=== PATIENT | male | born 1950 | race Caucasian/White ===

== ENCOUNTER 2016-11-30 08:13 | Emergency (ER) | payer MEDICARE ==
[~2016-11-30] VITALS: Ht 185.4 cm; Wt 107.3 kg
[~2016-11-30 08:13] MED LIST: ALBU8.5H2 INHALATION; AMLO10TA3 PO; ASPI-973 PO; ATOR20TA PO; CA C1TAB86 PO; CHOL200025 PO; GLUC-91 PO; KTC2C15 TOP; LEVO750T9 PO; LISI-567 PO; LORA10CA PO; MOME17SP NS; MULT-666 PO; OMEG1CAP25 PO; PANT500T PO; PRE20 PO; TRIA1TAB5 PO
[2016-11-30 08:15] VITALS: BP 157/84; PULSE 64; RESP 16; O2SAT 98
--- NOTE | 2016-11-30 08:22 | ED.REPORT ---
HPI-Chest Pain 40 and Over Date of Service Nov 30, 2016 ED Provider: Roverto Nielsen Patient is a 66 year old male with a hx of paroxysmal afib, HTN, hyperlipidemia , COPD, and DVT on Eliquis who presents to the ED complaining of chest pain onset 0700 this morning after a sneezing fit. His pain radiates to his shoulders and causes pain with inspiration. He denies SOB, cough, cold symptoms , or any other symptoms. He does not have a hx of PE. Patient took his Eloquis, Metoprolol, amlodipine, and flecainide this morning. Nursing Notes Stated Complaint: CHEST PAIN Chief Complaint: Chest Pain Nursing Notes Reviewed: Yes Allergies: Coded Allergies: Penicillins (Verified Allergy, Severe, PARALYSIS, 03/16/16) 30 YEARS AGO Scheduled Amlodipine (Amlodipine) 10 Mg Tablet 10 MG PO DAILY Apixaban (Eliquis) 5 Mg Tablet 5 MG PO BID Atorvastatin (Lipitor) 20 Mg Tablet 20 MG PO DAILY Cholecalciferol (Vitamin D3) (Vitamin D3) 2,000 Unit Tablet 2,000 UNIT PO DAILY Flecainide Acetate (Flecainide Acetate) 100 Mg Tablet 100 MG PO BID Gluc/Marek-MSM#1/Vit C/Jomar/Bor (Tngvtkl-Qllfl-KJO Complex Cplt) 1 Each Tablet 1 EACH PO BID Lisinopril (Lisinopril) 20 Mg Tablet 20 MG PO BID Loratadine (Claritin) 10 Mg Capsule 10 MG PO DAILY Metoprolol Succinate ER (Metoprolol Succinate ER) 50 Mg Tab.er.24h 50 MG PO BID Mometasone Furoate (Nasonex) 17 Gm [place].pump 2 SPRAY NS DAILY Multivitamin (Once Daily) 1 Each Tablet 1 EACH PO DAILY Triamterene/HCTZ 75-50 mg (Triamterene/HCTZ 75-50 mg) 1 Each Tablet 0.5 TABLET PO HS Scheduled PRN Albuterol HFA (Proair HFA) 8.5 Gm Hfa.aer.ad 2 PUFFS INHALATION Q4H PRN PRN For Shortness of Breath Hydrocodone-Acetaminophen 5-325 mg (Hydrocodone-Acetaminophen 5-325 mg) 1 Each Tablet 1 TABLET PO Q4H PRN PRN For Pain General Time Seen by MD: 08:22 Chief Complaint Chest pain Hx Obtained From: Patient, Spouse Arrived By: Walk-in Sudden in Onset?: Yes Onset Occurred: 1 - 4 hours ago Symptom Duration: Since onset Risk Factors )( CAD Risk Stratification Hyperlipidemia Hypertension Risk factors reviewed )( TAD Risk Stratification HypertensionNo Marfan's syndrome, No Risk factors reviewed )( PE Risk Stratification Previous DVTNo , No , No Previous PE Risk factors reviewed Past Medical History Past Medical History Polycythemia vera, Hypertension, Atrial fibrillation COPD Reports: Hyperlipidemia, Hypertension Reports: Urolithiasis Past Surgical History Reports: Appendectomy Smoking History Former Smoker Social History Alcohol Use: "Social" Drug Use: Denies drug use Ambulatory Status Independent Review of Systems Review of Systems Note: +pain with inspiration Constitutional: Denies: Chills, Fever Respiratory: Denies: Non-productive cough, Shortness of breath Cardiovascular: Reports: Chest pain GI: Denies: Diarrhea, Nausea Musculoskeletal: Reports: Joint pain Complete sys rev & neg: except as marked. Physical Exam Initial Vital Signs Vital Signs (First) Date Time Temp Pulse Resp B/P Pulse Ox O2 Delivery O2 Flow Rate FiO2 11/30/16 08:15 36.2 64 16 157/84 98 Room Air 11/30/16 08:47 2 Initial VS: Reviewed, Vital signs normal Head / Eyes: Atraumatic, Normocephalic Neck: Full range of motion Skin: Warm, Dry Neurologic: Alert, Oriented, Nonfocal Psychiatric: Mood/affect normal, Behavior normal, Normal thought content General/Constitutional: Awake, Alert, No acute distress Respiratory / Chest: Atraumatic, Breath sounds NL, Breath sounds = bilat, No respiratory distress R chest wall tender to palpation Cardiovascular: Heart rate NL, Regular rhythm, Heart sounds NL Abdomen: Atraumatic, Soft, Non-tender Neck: Supple, Full range of motion, No swelling, Non-tender, No masses, No JVD Interpretation & Diagnostics Lab Results Interpretation Result Diagram: 11/30/16 0832 11/30/16 0832 Test 11/30/16 08:32 11/30/16 10:00 White Blood Count 8.7th/mm3 (3.8-10.1) Red Blood Count 5.74mil/mm3 (4.40-5.80) Hemoglobin 16.5g/dL (13.8-17.2) Hematocrit 49.3% (41.0-50.0) Mean Corpuscular Volume 85.9fL (81-100) Mean Corpuscular Hemoglobin 28.7pg (27.0-35.0) Mean Corpuscular Hemoglobin Concent 33.5% (32.0-37.0) Red Cell Distribution Width 13.5% (12.3-15.4) Platelet Count 110bil/L (150-400) Neutrophils (%) (Auto) 70.4% (40-74) Lymphocytes (%) (Auto) 17.3% (14-46) Monocytes (%) (Auto) 10.0% (4-12) Eosinophils (%) (Auto) 1.7% (0-5) Basophils (%) (Auto) 0.3% (0-3) D-Dimer < 0.50mg/L FEU (<0.50) Sodium Level 141mEq/L (134-144) Potassium Level 4.2mEq/L (3.5-5.2) Chloride Level 101mEq/L (97-108) Carbon Dioxide Level 23mmol/L (18-29) Blood Urea Nitrogen 24mg/dL (8-27) Creatinine 0.96mg/dL (0.76-1.27) Estimat Glomerular Filtration Rate 83mL/min (>59) Glucose Level 108mg/dL (60-99) Calcium Level 9.9mg/dL (8.5-10.1) Magnesium Level 1.9mg/dL (1.6-2.6) Total Bilirubin 1.3mg/dL (0.0-1.2) Aspartate Amino Transf (AST/SGOT) 27U/L (0-50) Alanine Aminotransferase (ALT/SGPT) 31U/L (0-44) Alkaline Phosphatase 49U/L (25-160) Total Protein 7.4g/dL (6.4-8.4) Albumin 4.3g/dL (3.4-5.0) Hold Ewing Top Tube Received (Received) Troponin T 0.010ug/L (0.0-0.011) ECG Interpretation ECG Interpretation: Sinus rate 68 Borderline prolonged OK interval L anterior fascicular block Time: 08:36 Interpreted by: ED physician X-Ray Chest Interpretation Chest Xray Interpretation: IMPRESSION: Left lung base alveolar infiltration, mild in severity, consistent with mild or early pneumonia. Mild pleural thickening along the right lateral chest wall, previously present. Dictated by: Zaid Cruz M.D. on 11/30/2016 at 9:00 Approved by: Zaid Cruz M.D. on 11/30/2016 at 9:01 View: Portable, 1 view Interpretation / Wet Read by: Interpret - Radiologist CT Chest Interpretation IMPRESSION: 1. No evidence of aortic dissection. 2. No evidence of central pulmonary embolism. 3. Hepatic and renal cysts. 4. Cholelithiasis without imaging evidence of cholecystitis. Dictated by: Vidhya Streeter M.D. on 11/30/2016 at 9:23 Approved by: Vidhya Streeter M.D. on 11/30/2016 at 9:31 Interpretation / Wet Read by: Interpret - Radiologist Re-Eval/Medical Decision Med Decision/Clinical Course Patient presents with chest pain after an episode of sneezing, it is focal and reproducible, associated with deep breathing. EKG is unremarkable, serial troponins are negative, CT shows no evidence of pulmonary embolism or aortic dissection. Pain has resolved. Reviewed prior records in approximately 5 months ago the patient had a normal stress test. Patient is feeling better and is agreeable to discharge home. Strict return and follow-up precautions given. Time of Eval: 09:20 Re-Evaluation/Progress Note: Rechecked patient. His pain has resolved slightly but he is still in pain. Time of Eval: 10:48 Re-Evaluation/Progress Note: Discussed lab results and plan for discharge. Patient understands and agrees with plan. All questions addressed at this time. Differential Diagnosis: Positive: Acute coronary syndrome, Acute myocardial infarct, Aortic dissection, Chest pain, Congestive heart failure, Costochondritis, Hiatal hernia, Myocardial infarction, Myocarditis, Pleurisy, Pneumonia, Pneumothorax, Pulmonary edema, Unstable angina Counseled Regarding: Diagnosis, Lab results, Need for follow-up, When/why to return to ED Discharge & Departure Primary Impression: Chest pain Chest pain type: unspecified Qualified Code: R07.9 - Chest pain, unspecified Disposition: Home Discharge Condition All VS Reviewed: Yes Condition: Improved Patient Instructions: Chest Pain (ED) Additional Instructions: Take Vicodin as needed for pain. Call your regular doctor and drug and alcohol counselor today for follow-up appointment. Return to the ER as needed for worsening or persistent chest discomfort, severe trouble breathing, lethargy, or other concerns Referrals: Storm Swenson MD (PCP) Larryibcorky Attestation Portions of this note were transcribed by Khanh Olivarez. I, Dr. Nielsen personally performed the history, physical exam and medical decision-making; I reviewed and confirmed the accuracy of the information in the transcribed note. Signed by: Alberto Bhakta, 11/30/16 copies to: Storm Swenson MD, Timothy S DO Nov 30, 2016 08:22 KHANH OLIVAREZ Nov 30, 2016 08:32 Kristi Roberts Nov 30, 2016 08:42
[2016-11-30] MEDS ORDERED: Ondansetron 2 mg/mL 2 mL Inj IVPUSH PRN (08:30)
[2016-11-30 08:41] LABS: BASOPHILS % (AUTO) 0.3 % (0-3); EOSINOPHILS % (AUTO) 1.7 % (0-5); Mean Corpuscular Hemoglobin 28.7 pg (27.0-35.0); Mean Corpuscular Volume 85.9 fL (81-100); NEUTROPHILS % (AUTO) 70.4 % (40-74); Platelet Count 110 bil/L (150-400)
[2016-11-30 08:47] VITALS: BP 141/75; PULSE 66; RESP 16; O2SAT 98
--- NOTE | 2016-11-30 09:03 | DRSVH ---
PROCEDURE: X-RAY CHEST ONE VIEW, PORTABLE ([id number]) INDICATIONS: CP, WORSE WITH BREATHING, HX AFIB/COPD TECHNIQUE: One view of the chest was acquired. COMPARISON: [facility], CT, CT ANGIO CHEST PE, 03/16/2016, 3:43. [facility] , CR, XR CHEST 1VW (PORTABLE), 03/21/2016, 4:53. [facility], CR, XR CHEST 1VW (PORTABLE) , 03/19/2016, 5:30. FINDINGS: Surgical changes and devices: None. Lungs and pleura: No pleural effusions or pneumothorax, but there is a mild area of pleural plaquing , measuring approximately 1 cm in maximal thickness having been previously present on prior [place] m imaging and CT scanning from the past. Lungs are abnormal with a mild left lung base pneumonia pat tern laterally. Mediastinum: Mediastinal contours appear normal. Heart size is normal. Bones and chest wall: No suspicious bony lesions. Overlying soft tissues appear unremarkable. IMPRESSION: Left lung base alveolar infiltration, mild in severity, consistent with mild or early pne umonia. Mild pleural thickening along the right lateral chest wall, previously present. Dictated by: Zaid Cruz M.D. on 11/30/2016 at 9:00 Approved by: Zaid Cruz M.D. on 11/30/2016 at 9:01
[2016-11-30 09:09] LABS: TROPONIN T 0.01 ug/L (0.0-0.011)
[2016-11-30 09:20] LABS: Magnesium 1.9 mg/dL (1.6-2.6)
[2016-11-30] MEDS ORDERED: HYDROcodone-APAP 5-325 mg Tablet PO ONE (09:25)
[2016-11-30 09:26] VITALS: BP 124/65; PULSE 62; RESP 22; O2SAT 96
[2016-11-30] MEDS ORDERED: APIX5TAB PO (09:49)
[2016-11-30] MEDS ORDERED: FLEC100T2 PO (09:49)
[2016-11-30] MEDS ORDERED: METO-272 PO (09:49)
--- NOTE | 2016-11-30 10:33 | DRSVH ---
PROCEDURE: CT ANG CHEST/ABD W/WO CONTRAST ([id number]) INDICATIONS: sudden sharp chest pain, hypertensive TECHNIQUE: Precontrast 5 mm thick sections acquired from the lung apices to the iliac crests. After the adminis tration of intravenous contrast, 3 mm thick sections again acquired from the lung apices to the iliac crests. 3-dimensional maximum intensity projection (MIP) oblique sagittal and coronal reformats wer e then acquired, and/or 3-dimensional volume rendering reformats. For radiation dose reduction, the following was used: automated exposure control. COMPARISON: [facility], CT, CT ANGIO CHEST PE, 03/16/2016, 3:43. FINDINGS: Image quality: Excellent. AORTA: Aorta is normal in size. No aneurysmal dilation or visualized dissection. CHEST: Lungs and pleura: No acute airspace opacities. Dependent changes are present within the bases. No p leural effusions or pneumothorax. Central and peripheral airways are patent and normal in caliber. Mediastinum: Heart size is normal. No pericardial effusion. No mediastinal or hilar adenopathy by size criteria. Central pulmonary arteries are normal in size. Esophagus is normal in caliber. No h iatal hernias. Bones and chest wall: No axillary adenopathy by size criteria. Thyroid gland is unremarkable. No s uspicious bony lesions. No vertebral body compression fractures. ABDOMEN: Vasculature: Celiac trunk and mesenteric arteries are patent. Renal arteries are also patent. Solid organs: Liver and spleen are normal in size. Multiple low attenuation hepatic foci are presen t most consistent with cysts. Gallbladder demonstrates a luminal calcification without wall thickenin g. Biliary system is non dilated. Pancreas enhances normally. No adrenal nodules. Both kidneys ar e normal in size and enhancement, without hydronephrosis. Multiple bilateral renal low attenuation f oci are present most suggestive of cysts, the largest is identified on the left measuring 8.1 cm. Peritoneum and bowel: No free fluid or air. Bowel loops are normal in caliber and wall thickness. Nodes and vessels: No retroperitoneal or mesenteric adenopathy by size criteria. Inferior vena cava is normal in morphology. Bones: No suspicious bony lesions. No vertebral body compression fractures. Miscellaneous: No ventral hernias. IMPRESSION: 1. No evidence of aortic dissection. 2. No evidence of central pulmonary embolism. 3. Hepatic and renal cysts. 4. Cholelithiasis without imaging evidence of cholecystitis. Dictated by: Vidhya Streeter M.D. on 11/30/2016 at 9:23 Approved by: Vidhya Streeter M.D. on 11/30/2016 at 9:31
[2016-11-30] MEDS ORDERED: HYDR-4003 PO (10:58)
[2016-11-30 11:12] VITALS: BP 137/60; PULSE 69; RESP 20; O2SAT 98
[2016-12-01] MEDS ORDERED: AZIT250T4 PO (19:44)
[2016-12-01] MEDS ORDERED: CEFD300C3 PO (19:44)
[2016-12-01] MEDS ORDERED: DOXY100T2 PO (19:57)
== END 2016-11-30 11:12 | disposition home or self-care (01) ==
LOC: SED 08:13
DX: R07.9 Chest pain, unspecified (principal); I10 Essential (primary) hypertension; E78.5 Hyperlipidemia, unspecified; Z87.891 Personal history of nicotine dependence; Z79.899 Other long term (current) drug therapy; Z88.0 Allergy status to penicillin
CPT/HCPCS: 36415; 71010; 71275; 74175; 80053; 83735; 84484; 85025; 85378; 93005; 96374; 99285; J2270; Q9967

== ENCOUNTER 2016-12-01 15:33 | Emergency (ER) | payer MEDICARE ==
[~2016-12-01] VITALS: Ht 185.4 cm; Wt 108.2 kg
[~2016-12-01 15:33] MED LIST changes: +APIX5TAB PO; -ASPI-973 PO; -CA C1TAB86 PO; +FLEC100T2 PO; +HYDR-4003 PO; -KTC2C15 TOP; -LEVO750T9 PO; +METO-272 PO; -OMEG1CAP25 PO; -PANT500T PO; -PRE20 PO
[2016-12-01 15:45] VITALS: BP 137/71; PULSE 66; RESP 18; O2SAT 96
--- NOTE | 2016-12-01 16:25 | DRSVH ---
PROCEDURE: X-RAY CHEST ONE VIEW, PORTABLE ([id number]) INDICATIONS: CHEST PAIN TECHNIQUE: One view of the chest was acquired. COMPARISON: [facility], CR, XR CHEST 1VW (PORTABLE), 11/30/2016, 8:19. FINDINGS: Surgical changes and devices: None. Lungs and pleura: No pleural effusions or pneumothorax. Mild increased pulmonary vascularity. Mini mal left costophrenic angle blunting. Streaky bibasilar opacities. Mediastinum: Mediastinal contours appear normal. Heart size is normal. Bones and chest wall: No suspicious bony lesions. Overlying soft tissues appear unremarkable. IMPRESSION: Increased pulmonary vascularity suggestive of edema. Left costophrenic blunting suggest clarence of trace effusion. Bibasilar opacities are present, possibly representing edema or atelectasis. Dictated by: Vidhya Streeter M.D. on 12/01/2016 at 15:22 Approved by: Vidhya Streeter M.D. on 12/01/2016 at 15:23
--- NOTE | 2016-12-01 16:40 | ED.REPORT ---
HPI-Chest Pain 40 and Over Date of Service Dec 01, 2016 ED Provider: Allan Fernandez PA-C Chadwick is a 66-year-old male with history of A. fib, hypertension, hyperlipidemia, COPD, DVT return to emergency department for ongoing chest pain. She has department last night complaining of chest pain aggravated by deep inspiration which began yesterday morning after the tach and sneezing. He reports seizing fits are typical for him after discontinuing APAP for the day. Pain radiates to his shoulders. Discharged last night after a thorough workup with a prescription for pain medications which she states are helpful. Reports some shortness of breath, stating he cannot walk to his mailbox approximately 100 yards without resting. He also reports runs of A. fib last night and measured his heart rate as high as 135. Otherwise reports improved pain. Denies cough, cold symptoms, fevers, shaking chills. Patient has made arrangements to follow-up with primary care tomorrow. He reports the triage nurse suggested he return to the emergency department and have tests repeated as his symptoms continue The records indicate unremarkable EKG, normal CBC, CMP. Normal troponins, normal CT, chest x-ray. Nursing Notes Stated Complaint: chest pain Chief Complaint: Chest Pain Nursing Notes Reviewed: Yes Allergies: Coded Allergies: Penicillins (Verified Allergy, Severe, PARALYSIS, 03/16/16) 30 YEARS AGO Scheduled Amlodipine (Amlodipine) 10 Mg Tablet 10 MG PO DAILY Apixaban (Eliquis) 5 Mg Tablet 5 MG PO BID Atorvastatin (Lipitor) 20 Mg Tablet 20 MG PO DAILY Cefdinir (Cefdinir) 300 Mg Capsule 300 MG PO BID Cholecalciferol (Vitamin D3) (Vitamin D3) 2,000 Unit Tablet 2,000 UNIT PO DAILY Doxycycline Hyclate (Doxycycline Hyclate) 100 Mg Tablet 100 MG PO BID Flecainide Acetate (Flecainide Acetate) 100 Mg Tablet 100 MG PO BID Gluc/Marek-MSM#1/Vit C/Jomar/Bor (Amarffq-Uiypp-WEO Complex Cplt) 1 Each Tablet 1 EACH PO BID Lisinopril (Lisinopril) 20 Mg Tablet 20 MG PO BID Loratadine (Claritin) 10 Mg Capsule 10 MG PO DAILY Metoprolol Succinate ER (Metoprolol Succinate ER) 50 Mg Tab.er.24h 50 MG PO BID Mometasone Furoate (Nasonex) 17 Gm [place].pump 2 SPRAY NS DAILY Multivitamin (Once Daily) 1 Each Tablet 1 EACH PO DAILY Triamterene/HCTZ 75-50 mg (Triamterene/HCTZ 75-50 mg) 1 Each Tablet 0.5 TABLET PO HS Scheduled PRN Albuterol HFA (Proair HFA) 8.5 Gm Hfa.aer.ad 2 PUFFS INHALATION Q4H PRN PRN For Shortness of Breath Hydrocodone-Acetaminophen 5-325 mg (Hydrocodone-Acetaminophen 5-325 mg) 1 Each Tablet 1 TABLET PO Q4H PRN PRN For Pain General Time Seen by MD: 16:16 Chief Complaint Chest pain Sudden in Onset?: No Past Medical History Past Medical History Polycythemia vera, Hypertension, Atrial fibrillation COPD Reports: Hyperlipidemia, Hypertension Reports: Urolithiasis Past Surgical History Reports: Appendectomy Smoking History Former Smoker Social History Alcohol Use: "Social" Drug Use: Denies drug use Ambulatory Status Independent Review of Systems General: Denies fever, chills, malaise. HEENT: Denies congestion, headache, sore throat. Respiratory: Admits shortness of breath, pain with inspiration. Denies cough, wheeze. Cardiovascular: Palpitations, denies crushing chest pain. Otherwise as noted in HPI. Physical Exam General: Well appearing, well developed, well nourished, no acute distress. Head: Atraumatic, normocephalic. Eyes: No scleral icterus or injection. No discharge. Vision grossly intact. ENT: Voice clear, hearing grossly intact. Respiratory: Regular rate and rhythm. Breath sounds present, clear to auscultation and equal bilaterally. No respiratory distress. No increased work of breathing, speaks in complete sentences. Cardiovascular: Regular rate and rhythm, without murmur, gallop or rub. Trace pitting edema. Chest: Normal to inspection, nontender to palpation. Back: Normal to inspection. Skin: Warm and dry. Neurological: Grossly nonfocal. Psychological: Alert and oriented. Speech appropriate, linear and logical. Behavior appropriate. Initial Vital Signs Vital Signs (First) Date Time Temp Pulse Resp B/P Pulse Ox O2 Delivery O2 Flow Rate FiO2 12/01/16 15:45 36.8 66 18 137/71 96 Room Air Interpretation & Diagnostics Lab Results Interpretation Result Diagram: 12/01/16 1710 12/01/16 1710 Test 12/01/16 17:10 12/01/16 19:43 White Blood Count 13.2th/mm3 (3.8-10.1) Red Blood Count 5.43mil/mm3 (4.40-5.80) Hemoglobin 15.7g/dL (13.8-17.2) Hematocrit 46.8% (41.0-50.0) Mean Corpuscular Volume 86.2fL (81-100) Mean Corpuscular Hemoglobin 28.9pg (27.0-35.0) Mean Corpuscular Hemoglobin Concent 33.5% (32.0-37.0) Red Cell Distribution Width 13.4% (12.3-15.4) Platelet Count 52bil/L (150-400) Neutrophils (%) (Auto) 79.3% (40-74) Lymphocytes (%) (Auto) 8.3% (14-46) Monocytes (%) (Auto) 11.7% (4-12) Eosinophils (%) (Auto) 0.2% (0-5) Basophils (%) (Auto) 0.2% (0-3) Sodium Level 135mEq/L (134-144) Potassium Level 4.6mEq/L (3.5-5.2) Chloride Level 99mEq/L (97-108) Carbon Dioxide Level 17mmol/L (18-29) Blood Urea Nitrogen 28mg/dL (8-27) Creatinine 0.89mg/dL (0.76-1.27) Estimat Glomerular Filtration Rate 91mL/min (>59) Glucose Level 104mg/dL (60-99) Calcium Level 9.5mg/dL (8.5-10.1) Total Bilirubin 1.0mg/dL (0.0-1.2) Aspartate Amino Transf (AST/SGOT) 22U/L (0-50) Alanine Aminotransferase (ALT/SGPT) 23U/L (0-44) Alkaline Phosphatase 45U/L (25-160) Pro-B-Type Natriuretic Peptide 191.6pg/mL (0-376) Total Protein 7.2g/dL (6.4-8.4) Albumin 3.9g/dL (3.4-5.0) Procalcitonin 0.24ng/mL (0.00-0.08) Hold Ewing Top Tube Received (Received) Troponin T < 0.010ug/L (0.0-0.011) ECG Interpretation ECG Interpretation: Sinus rhythm rate of 61, nonspecific intraventricular conduction delay, negative for STEMI Time: 16:01 Interpreted by: ED physician (Dr. worthington) X-Ray Chest Interpretation Chest Xray Interpretation: INDICATIONS: CHEST PAIN TECHNIQUE: One view of the chest was acquired. COMPARISON: [facility], CR, XR CHEST 1VW (PORTABLE), 11/30/2016, 8:19. FINDINGS: Surgical changes and devices: None. Lungs and pleura: No pleural effusions or pneumothorax. Mild increased pulmonary vascularity. Minimal left costophrenic angle blunting. Streaky bibasilar opacities. Mediastinum: Mediastinal contours appear normal. Heart size is normal. Bones and chest wall: No suspicious bony lesions. Overlying soft tissues appear unremarkable. IMPRESSION: Increased pulmonary vascularity suggestive of edema. Left costophrenic blunting suggestive of trace effusion. Bibasilar opacities are present, possibly representing edema or atelectasis. Re-Eval/Medical Decision Med Decision/Clinical Course 66-year-old male of A. fib, COPD presents to emergency department for ongoing chest pain with deep inspiration associated with heart palpitations last night, reduced exercise tolerance. Seen in this department for similar symptoms last night, thoroughly worked up and discharged with pain medication. Returns for ongoing symptoms, though he reports improvement in his pain. Physical exam is benign with clear lung sounds, normal heart tones, negative pedal edema. Generally well appearing, normal vitals. EKG is unremarkable, negative for ischemic changes. Chest x-ray shows some increasing opacity since last night. I discussed this finding with Dr. Estrada , who recommends procalcitonin, BMP, blood cultures. CBC reveals a leukocytosis of 13.2 as well as a thrombocytopenia at 52 and a left shift. Leukocytosis is significantly increased since last night, when white count was roughly 8. Pro calcitonin is elevated at 0.24, repeat troponins are negative. CMP reveals a slightly low carbon dioxide 17, slightly elevated BUN at 28 I discussed the case with Dr. Hylton. We believe this is most likely to be acquired pneumonia, and I reassured against other significant causes such as KS or PE, which was. He advises a course of antibiotics. CURB 65 equals 2. I discussed the possibility of hospitalization with the patient, who would prefer to be treated outpatient. He has follow-up arranged with his primary care provider tomorrow and I feel this is appropriate. stable and safe to be discharged. Advised regarding primary care follow-up, provided emergency return precautions. Patient verbalized understanding of, and consent to, the plan. Time of Eval: 17:47 Re-Evaluation/Progress Note: Patient reports improvement in pain after one [place]. Reports he can draw a deeper breath now. Otherwise unchanged. Discharge & Departure Primary Impression: Pneumonia Pneumonia type: due to unspecified organism Laterality: left Lung location : lower lobe of lung Qualified Code: J18.1 - Lobar pneumonia, unspecified organism Disposition: Home Discharge Condition All VS Reviewed: Yes Condition: Stable Patient Instructions: Community Acquired Pneumonia (ED) Additional Instructions: Evaluation in the emergency department for chest pain and shortness of breath includes interview, physical examination, lab tests, chest x-ray and review of records, all of which indicated that she will appear to be developing a pneumonia. They are reassuring that she is not caused by another dangerous conditions such as heart attack or blood clot in your lungs. He appeared to be a good candidate for outpatient treatment, and wished to be discharged so we have treated her as such. Given given IV antibiotic here in the emergency department. I will send you with prescriptions for oral antibiotics be taken for the next 5 days. Please take every dose as directed. Follow-up with your primary care provider tomorrow as planned, and arrange cardiology follow-up as instructed by Dr. Fox last night. Return to the emergency department for new or worsening symptoms including increasing chest pain, increasing shortness of breath. Referrals: Storm Swenson MD (PCP) EDSupervising Provider for APC: Mohan Hylton DO Attending Statement I concur with the assessment and plan as outlined above. copies to: Storm Swenson MD, Seth PA-C Dec 01, 2016 16:40 Mohan Hylton DO Dec 03, 2016 01:07
[2016-12-01] MEDS ORDERED: HYDROcodone-APAP 5-325 mg Tablet PO ONE ×2 (17:15→22:25)
[2016-12-01 17:21] LABS: BASOPHILS % (AUTO) 0.2 % (0-3); EOSINOPHILS % (AUTO) 0.2 % (0-5); MONOCYTES % (AUTO) 11.7 % (4-12); Mean Corpuscular Hemoglobin 28.9 pg (27.0-35.0); Mean Corpuscular Volume 86.2 fL (81-100); NEUTROPHILS % (AUTO) 79.3 % (40-74); Platelet Count 52 bil/L (150-400)
[2016-12-01 17:31] VITALS: BP 124/70; PULSE 77; RESP 20; O2SAT 99
[2016-12-01 17:55] LABS: TROPONIN T < 0.010 ug/L (0.0-0.011)
[2016-12-01] MEDS ORDERED: cefTRIAXone Inj 2,000 MG in Dextrose 5% Minibag Plus 50 ML IV ONE (19:15)
[2016-12-01] MEDS ORDERED: Azithromycin Inj 500 MG in Dextrose 5% w/Vial Mate 250 ML IV ONE (19:15)
[2016-12-01] MEDS ORDERED: CEFD300C3 PO (19:44)
[2016-12-01] MEDS ORDERED: AZIT250T4 PO (19:44)
[2016-12-01] MEDS ORDERED: Doxycycline Inj 100 MG in Dextrose 5% Minibag Plus 100 ML IV ONE (19:55)
[2016-12-01] MEDS ORDERED: DOXY100T2 PO (19:57)
[2016-12-01 22:31] VITALS: BP 131/79; PULSE 70; RESP 22; O2SAT 95
[2016-12-01 23:37] VITALS: BP 134/76; PULSE 61; RESP 19; O2SAT 95
== END 2016-12-01 23:39 | disposition home or self-care (01) ==
LOC: SED 15:33
DX: J18.1 Lobar pneumonia, unspecified organism (principal); I10 Essential (primary) hypertension; I48.91 Unspecified atrial fibrillation; E78.5 Hyperlipidemia, unspecified; Z87.891 Personal history of nicotine dependence; Z88.0 Allergy status to penicillin
CPT/HCPCS: 36415; 71010; 80053; 83880; 84145; 84484; 85025; 87040; 93005; 96365; 96375; 99285; J0696

== ENCOUNTER 2016-12-02 22:55 | Inpatient (IN) | payer MEDICARE ==
[~2016-12-02] VITALS: Ht 185.4 cm; Wt 111.9 kg
[~2016-12-02 22:55] MED LIST changes: +CEFD300C3 PO; +DOXY100T2 PO
--- NOTE | 2016-12-02 23:10 | ED.REPORT ---
HPI-Chest Pain 40 and Over Date of Service Dec 02, 2016 ED Provider: Rashid Gaviria MD A 66 year old male with a history of sternal fracture, rib fracture, pleurisy, developing pneumonia, atrial fibrillation, hypertension, hyperlipidemia and COPD presents to the ED complaining of chest pain. The pt took an antibiotic at 18:30 this evening in addition to a pain medication for his chest pain. He laid down, which exacerbated the pain, but was able to fall asleep. He woke at 22:30 with significant pain and noted his blood pressure to be 157/107 and his heart rate to be over 120. The pt denies fever or productive cough. He was seen in the ED twice in the last two days for similar symptoms, and diagnosed with pneumonia. Nursing Notes Stated Complaint: CHEST PAIN ,SOB Nursing Notes Reviewed: Yes Allergies: Coded Allergies: Penicillins (Verified Allergy, Severe, PARALYSIS, 03/16/16) 30 YEARS AGO Scheduled Amlodipine (Amlodipine) 10 Mg Tablet 10 MG PO DAILY Apixaban (Eliquis) 5 Mg Tablet 5 MG PO BID Atorvastatin (Lipitor) 20 Mg Tablet 20 MG PO DAILY Cefdinir (Cefdinir) 300 Mg Capsule 300 MG PO BID Cholecalciferol (Vitamin D3) (Vitamin D3) 2,000 Unit Tablet 2,000 UNIT PO DAILY Doxycycline Hyclate (Doxycycline Hyclate) 100 Mg Tablet 100 MG PO BID Flecainide Acetate (Flecainide Acetate) 100 Mg Tablet 100 MG PO BID Gluc/Marek-MSM#1/Vit C/Jomar/Bor (Pxkmdpf-Uufwd-DGI Complex Cplt) 1 Each Tablet 1 EACH PO BID Lisinopril (Lisinopril) 20 Mg Tablet 20 MG PO BID Loratadine (Claritin) 10 Mg Capsule 10 MG PO DAILY Metoprolol Succinate ER (Metoprolol Succinate ER) 50 Mg Tab.er.24h 50 MG PO BID Mometasone Furoate (Nasonex) 17 Gm [place].pump 2 SPRAY NS DAILY Multivitamin (Once Daily) 1 Each Tablet 1 EACH PO DAILY Triamterene/HCTZ 75-50 mg (Triamterene/HCTZ 75-50 mg) 1 Each Tablet 0.5 TABLET PO HS Scheduled PRN Albuterol HFA (Proair HFA) 8.5 Gm Hfa.aer.ad 2 PUFFS INHALATION Q4H PRN PRN For Shortness of Breath Hydrocodone-Acetaminophen 5-325 mg (Hydrocodone-Acetaminophen 5-325 mg) 1 Each Tablet 1 TABLET PO Q4H PRN PRN For Pain General Time Seen by MD: 23:10 Chief Complaint Chest pain Hx Obtained From: Patient Arrived By: Walk-in Sudden in Onset?: Yes Onset Occurred: 1 - 4 hours ago Symptom Duration: Since onset Recent Healthcare: Recent doctor visit Similar Sx Previous: Yes Past Medical History Past Medical History Polycythemia vera, Hypertension, Atrial fibrillation Bilateral ankle and foot fracture COPD sternal fracture rib fracture pleurisy developing pneumonia Reports: Hyperlipidemia, Hypertension Reports: Urolithiasis Past Surgical History Reports: Appendectomy Smoking History Former Smoker Social History Alcohol Use: "Social" Drug Use: Denies drug use Ambulatory Status Independent Review of Systems Review of Systems Note: elevated blood pressure elevated heart rate Constitutional: Denies: Fever Respiratory: Denies: Prod cough, clear Cardiovascular: Reports: Chest pain GI: Denies: Abdominal pain, Vomiting Musculoskeletal: Denies: Back pain, Neck pain Skin: Denies Rash Complete sys rev & neg: except as marked. Physical Exam Initial Vital Signs Vital Signs (First) Date Time Temp Pulse Resp B/P Pulse Ox O2 Delivery O2 Flow Rate FiO2 12/02/16 23:13 36.7 80 28 144/77 98 Room Air Initial VS: Reviewed General/Constitutional: Awake, Alert Appearance / Presentation: Positive: Obese appears uncomfortable Respiratory / Chest: Atraumatic, Breath sounds NL, Breath sounds = bilat splinted breathing Cardiovascular: Heart rate NL, Regular rhythm, Heart sounds NL Abdomen: Atraumatic, Soft, Non-tender Neck: Atraumatic, Supple, Full range of motion Back: Atraumatic, Full range of motion Lower Extremity / Pelvis / MS: Atraumatic, Full range of motion Skin: Atraumatic, Color NL, No rash, Warm, Dry Neurologic: Oriented X3, Speech NL, No motor deficits, No sensory deficits Psychiatric: Affect NL Abnormal Mood/Affect: Positive: Anxious Head / Eyes: Atraumatic, Normocephalic, PERRL, EOMI ENT: Atraumatic, Airway patent, Mucous membranes moist Upper Extremity / MS: Atraumatic, Full range of motion Interpretation & Diagnostics Lab Results Interpretation Result Diagram: 12/02/16 2352 12/03/16 0021 Test 12/02/16 23:52 12/03/16 00:21 White Blood Count 12.2th/mm3 (3.8-10.1) Red Blood Count 5.49mil/mm3 (4.40-5.80) Hemoglobin 15.7g/dL (13.8-17.2) Hematocrit 47.1% (41.0-50.0) Mean Corpuscular Volume 85.8fL (81-100) Mean Corpuscular Hemoglobin 28.6pg (27.0-35.0) Mean Corpuscular Hemoglobin Concent 33.3% (32.0-37.0) Red Cell Distribution Width 13.5% (12.3-15.4) Platelet Count 104bil/L (150-400) Neutrophils (%) (Auto) 72.7% (40-74) Lymphocytes (%) (Auto) 12.6% (14-46) Monocytes (%) (Auto) 13.0% (4-12) Eosinophils (%) (Auto) 1.3% (0-5) Basophils (%) (Auto) 0.2% (0-3) Prothrombin Time 10.8sec (8.1-12.5) Prothromb Time International Ratio 1.01ratio Activated Partial Thromboplast Time 31.0sec (22.8-33.0) D-Dimer < 0.50mg/L FEU (<0.50) Sodium Level 142mEq/L (134-144) Potassium Level 3.8mEq/L (3.5-5.2) Chloride Level 102mEq/L (97-108) Carbon Dioxide Level 23mmol/L (18-29) Blood Urea Nitrogen 30mg/dL (8-27) Creatinine 1.02mg/dL (0.76-1.27) Estimat Glomerular Filtration Rate 77mL/min (>59) Glucose Level 117mg/dL (60-99) Calcium Level 9.1mg/dL (8.5-10.1) Magnesium Level 1.9mg/dL (1.6-2.6) Total Bilirubin 0.5mg/dL (0.0-1.2) Aspartate Amino Transf (AST/SGOT) 14U/L (0-50) Alanine Aminotransferase (ALT/SGPT) 20U/L (0-44) Alkaline Phosphatase 56U/L (25-160) Troponin T 0.010ug/L (0.0-0.011) Pro-B-Type Natriuretic Peptide 375.6pg/mL (0-376) Total Protein 7.0g/dL (6.4-8.4) Albumin 3.8g/dL (3.4-5.0) Thyroid Stimulating Hormone (TSH) 1.720uIU/mL (0.450-4.500) ECG Interpretation ECG Interpretation: normal sinus rhythm with a rate of 78 inferior infarct, old IVCD no acute findings Time: 23:19 Interpreted by: ED physician X-Ray Chest Interpretation Chest Xray Interpretation: pleural thickening loculated effusion plate atelectasis bilaterally Interpretation / Wet Read by: Wet read ED physician Re-Eval/Medical Decision Med Decision/Clinical Course 66-year-old with termination fibrillation presents for the third time with sharp pleuritic chest pain that is uncontrolled with his hydrocodone at home. However, he is admittedly in A. fib here with rates in the 130s. He also demonstrated stretch of a regular supraventricular tachycardia with what appears to be a junctional or low atrial origin, with a very short [place] interval. This was followed closely by atrial fibrillation, suggesting a reentrant etiology for his atrial fibrillation. His responded to IV metoprolol here, supplementing metoprolol. He takes at home. He is again return sinus rhythm but appears to be intermittently having extrasystoles as well as brief runs of the regular SVT. He is admitted now for rate control and monitoring. Pain Control also an issue. He just had a CT angiogram yesterday, showing his chronic pleural thickening especially on the right, but no other acute findings. He is transported now in sinus rhythm in stable condition. Source of Hx: Old records Time of Eval: 02:39 Patient Status: Condition improved Re-Evaluation/Progress Note: Pt rechecked, who is stable. The diagnosis and plan for admission are discussed. The pt understands and agrees with the plan. All questions are addressed at this time. Consultation : Referral / Consult Name: Baljinder Eller MD Consulted With: Hospitalist Call Returned at: 02:31 Learning Coach: Agrees with eval, Agrees with plan, Accepts admit Note: Spoke with Dr. Eller, hospitalist, regarding pt's case. Dr. Eller agrees with the evaluation and agrees to admit the pt. Counseled Regarding: Diagnosis, Lab results, Need for admission Discharge & Departure Primary Impression: Paroxysmal atrial fibrillation Additional Impression: Chest pain Chest pain type: unspecified Qualified Code: R07.9 - Chest pain, unspecified Disposition: ADMITTED TO HOSPITAL Discharge Condition All VS Reviewed: Yes Condition: Stable Referrals: Storm Swenson MD (PCP) Crit Care Except Billable Proc Time Spent: 30-74 minutes (thirty minutes) Services Performed: Patient management by me, Time spent at bedside, Reviewing test results, Reviewing imaging, Discussing patient care, Documentation in record, Time with fam/surrogate Scribe Attestation Portions of this note were transcribed by Julia Gutierrez. I, Dr. Gaviria personally performed the history, physical exam and medical decision-making; I reviewed and confirmed the accuracy of the information in the transcribed note. copies to: Storm Swenson MD, Christopher W MD Dec 02, 2016 23:10 JULIA GUTIERREZ Dec 02, 2016 23:24
[2016-12-02 23:13] VITALS: BP 144/77; PULSE 80; RESP 28; O2SAT 98
[2016-12-02] MEDS ORDERED: Pantoprazole 4 mg/mL 10 mL Inj IVPUSH ONE (23:25)
[2016-12-02] MEDS ORDERED: HYDROmorphone 1 mg/mL Inj IVPUSH PRN (23:35)
[2016-12-02 23:56] LABS: BASOPHILS % (AUTO) 0.2 % (0-3); EOSINOPHILS % (AUTO) 1.3 % (0-5); Mean Corpuscular Hemoglobin 28.6 pg (27.0-35.0); Mean Corpuscular Volume 85.8 fL (81-100); NEUTROPHILS % (AUTO) 72.7 % (40-74); Platelet Count 104 bil/L (150-400)
[2016-12-03] VITALS (13 sets, daily range): BP systolic 112–142; BP diastolic 68–90; PULSE 60–121; RESP 16–24; O2SAT 93–97
[2016-12-03 00:46] LABS: D-Dimer < 0.50 mg/L FEU (<0.50); INR 1.01 ratio
[2016-12-03 00:47] LABS: TROPONIN T 0.01 ug/L (0.0-0.011)
[2016-12-03 00:58] LABS: Magnesium 1.9 mg/dL (1.6-2.6)
[2016-12-03] MEDS ORDERED: MeTOProlol 1 mg/mL 5 mL Inj IVPUSH SCH (02:05)
[2016-12-03] MEDS ORDERED: Atropine 1 mg/10 mL (Code) Syringe IVPUSH PRN (02:50)
[2016-12-03] MEDS ORDERED: Senna-Docusate 8.6-50 mg Tablet PO PRN (02:50)
[2016-12-03] MEDS ORDERED: Ondansetron 2 mg/mL 2 mL Inj IVPUSH PRN (02:50)
[2016-12-03] MEDS ORDERED: Polyethylene Glycol (PEG) 17 Gm Powder PO PRN (02:50)
[2016-12-03] MEDS ORDERED: Alum-Mag Hydrox-Simeth 30 mL Suspension PO PRN (02:50)
[2016-12-03] MEDS ORDERED: Albuterol 2.5 mg/3 mL Inhalation Solution NEB PRN (04:10)
--- NOTE | 2016-12-03 04:26 | PCM.HPMED ---
Subjective Date of Service Dec 03, 2016 Primary Provider: Admitting Physician: Primary Care Physician: Storm Swenson MD Attending Physician: Admit Status: From the Emergency Department, 23-Hour Observation Chief Complaint: Chest pain. . History of Present Illness: Jefferson Welsh is a 66-year-old male with a past medical history significant for paroxysmal atrial fibrillation, hypertension, hyperlipidemia and COPD who presents to [facility] emergency Department complaining of chest pain. The patient took an antibiotic at 18:30 this evening in addition to hydrocodone for his pleuritic chest pain. He laid down, which exacerbated the pain, but was able to fall asleep. He awoke at 22:30 with significant chest pain and pressure. The chest pain radiated to his shoulders bilaterally and left neck. He describes the pain as sharp with pressure component in quality. He noted that his blood pressure to be 157/107 and his heart rate to be over 120 when having the chest pain. He reports the chest pain is relieved with hydrocodone. The patient denies abdominal pain, nausea, vomiting, fever, dysuria, diarrhea or constipation. He does endorse a sore throat earlier in the week that has resolved, as well as, a minor nonproductive cough. He was seen in the ED twice in the last two days for similar symptoms and diagnosed with pneumonia on Cefdinir and doxycycline. Vital signs in the ER: Temperature 36.7. Pulse 80. Respiratory rate 28. Blood pressure 144/77. Pulse ox 90% on room air. He was given in the ED metoprolol tartrate IV 5 mg 1 and Protonix IV 40 mg 1. PCP is Dr. Farmer. Laminator Hand is Dr. Rausch. . Review of Systems: A comprehensive review of systems was conducted with the patient and found to be negative except as above in the History of Present Illness. . Allergies Coded Allergies: Penicillins (Verified Allergy, Severe, PARALYSIS, 03/16/16) 30 YEARS AGO Home Medications Albuterol 2 puffs inhaled every 4 hours as needed for shortness of breath. Amlodipine 10 mg daily. Atorvastatin 20 mg daily. Claritin 10 mg daily. Eliquis 5 mg twice a day. Flecainide 100 mg twice a day. Glucosamine/chondroitin tablet twice daily. Lisinopril 20 mg twice a day. Metoprolol succinate 50 mg twice a day. Nasonex 2 sprays intranasally daily. Multivitamin daily. Triamterene/hydrochlorothiazide 7550 mg half a tablet daily at bedtime. Vitamin D3 2000 international units daily. Recently prescribed Cefdinir 300 mg twice a day and doxycycline 100 mg twice a day for community-acquired pneumonia. . PMH 1. Polycythemia vera unclear if primary or secondary. 2. Hypertension. 3. Paroxysmal atrial fibrillation. 4. Bilateral ankle and foot fracture. 5. COPD. 6. History of sternal fracture. 7. History of rib fracture. 8. History of pleurisy. 9. History of recent pneumonia. 10. Hyperlipidemia. 11. Nephrolithiasis. 12. Melanoma. 13. History of migraine headaches. 14. Prediabetes. 15. History of blood clot in left leg (superficial thrombophlebitis?). . Surgical History 1. Appendectomy. 2. Tonsilectomy. 3. Bilateral eyelid reduction. . Family History Mother who had atrial fibrillation and breast cancer with metastases to the brain. Father who had artificial heart and ESRD. Brother with an LA at 60 years old. . Social History Hx Alcohol Use: Yes (Rarely) Hx Substance Use: No Smoking Status: Former Smoker (1-2 PPD x 10 years, quit 30 years ago) Additional Information The patient has been 28 years. He has 2 biological children which are healthy. He works at [employer] full-time. Exam Vital Signs Vital Sign - Last Date Time Temp Pulse Resp B/P Pulse Ox O2 Delivery O2 Flow Rate FiO2 12/03/16 02:27 60 18 130/90 93 Room Air 12/02/16 23:13 36.7 Intake and Output 12/02/16 12/02/16 12/03/16 Cumulative From/Thru 14:58 22:58 06:58 12/02/16 23:13 - 12/02/16 23:15 Intake Total 0 ml 0 ml Balance 0 ml 0 ml Intake Oral 0 ml 0 ml Exam General: Elderly gentleman lying in bed in no acute distress but appears mildly uncomfortable, well-developed, well-nourished, appropriately interactive HEENT: Normocephalic, atraumatic. External ears without defect. Pupils equal, round, and reactive to light. Anicteric sclerae, moist conjunctivae, and no lid lag. Oropharynx free of erythema and cobble stoning with moist mucosa. Neck: Supple with full range of motion. No jugular venous distension. No bruits. No lymphadenopathy or thyromegaly. Cardiovascular: Diminished heart sounds, regular rate and rhythm without murmurs , rubs, or gallops appreciated Pulmonary: Rales at right lung base otherwise clear throughout lung holt. No wheeze or rhonchi. Normal respiratory effort with no use of accessory muscles. Abdomen: Soft, nontender, nondistended, bowel sounds present. No hepatosplenomegaly or masses appreciated. Extremities: Mild stasis dermatitis. No clubbing, cyanosis, or edema. Skin: Normal temperature, turgor, and texture; no rash, ulcers, or subcutaneous nodules appreciated. Neurological: Cranial nerves grossly intact. Normal muscle strength, tone, and bulk. Reflexes, coordination, and sensory function within normal limits. No known gait impairment. Psychiatric: Normal mood and affect. Alert and oriented to person, place, and time. . Lab and Diagnostics Labs Item Value Date Time Prothrombin Time 10.8 sec 12/03/16 0021 Prothromb Time International Ratio 1.01 ratio 12/03/16 0021 Activated Partial Thromboplast Time 31.0 sec 12/03/16 0021 D-Dimer < 0.50 mg/L FEU 12/03/16 0021 Item Value Date Time Calcium Level 9.1 mg/dL 12/03/16 0021 Magnesium Level 1.9 mg/dL 12/03/16 0021 Total Bilirubin 0.5 mg/dL 12/03/16 0021 Aspartate Amino Transf (AST/SGOT) 14 U/L 12/03/16 0021 Alanine Aminotransferase (ALT/SGPT) 20 U/L 12/03/16 0021 Alkaline Phosphatase 56 U/L 12/03/16 0021 Troponin T 0.010 ug/L 12/03/16 0021 Pro-B-Type Natriuretic Peptide 375.6 pg/mL 12/03/16 0021 Total Protein 7.0 g/dL 12/03/16 0021 Albumin 3.8 g/dL 12/03/16 0021 Result Diagram: 12/02/16 2352 12/03/16 0021 X-Rays, CTs and MRIs Wet read by ED physician Chest Xray Interpretation 12/01/16: pleural thickening loculated effusion plate atelectasis bilaterally X-RAY CHEST ONE VIEW, PORTABLE 11/30/16 IMPRESSION: Increased pulmonary vascularity suggestive of edema. Left costophrenic blunting suggestive of trace effusion. Bibasilar opacities are present, possibly representing edema or atelectasis. Dictated by: Vidhya Streeter M.D. on 12/01/2016 at 15:22 . 12-lead ECG EKG: Sinus rhythm, heart rate 78, left axis, normal intervals, IVCD, normal R- wave progression, no pathological Q waves or acute ischemic changes such as ST elevation or depression. . Assessment & Plan Jefferson Welsh is a 66-year-old male with a past medical history significant for paroxysmal atrial fibrillation, hypertension, hyperlipidemia and COPD who presents to [facility] emergency Department complaining of chest pain. 1. Acute chest pain, present on admission. Active. - The patient presented with sharp chest pain and pressure. - Cardiac risk factors include: Gender, age, hypertension, hyperlipidemia, obesity, prediabetes, KEI and former smoker. - Differential diagnosis includes: Likely pleurisy versus less likely NSTEMI versus PE. - EKG did not demonstrate ischemic changes such as ST elevation or depression, as above. - CTA performed on 11/30/2016 did not demonstrate any central pulmonary emboli. - Initial troponin negative. Ordered serial troponins 3. - D-dimer negative. - Nitroglycerin and morphine as needed for chest pain. - NPO after midnight. - Ordered exercise stress test with echocardiogram. 2. Recently diagnosed community-acquired pneumonia, present on admission. Active. - Patient presented with sharp chest pain and pressure with recent diagnosis of community-acquired pneumonia and pleurisy. Mild leukocytosis. Does not meet sepsis criteria. - We will continue to treat pneumonia with ceftriaxone IV 2 g daily and azithromycin IV 500 mg. - Chest x-ray on 11/30/16 demonstrated left lung base alveolar infiltration, mild in severity, consistent with mild or early pneumonia and mild pleural thickening along the right lateral chest wall, as above. - Blood cultures from 11/30/16 are negative to date. - Complete pneumonia workup with sputum Gram stain and culture if obtainable, Legionella and strep pneumoniae urine antigens, and respiratory viral PCR. - Procalcitonin elevated at 0.24 consistent with recent diagnosis of pneumonia. - Ordered albuterol nebs every 4 hours PRN for shortness of breath. Chronic problems: 3. Hypertension, present on admission. Stable - Continue amlodipine 10 mg daily, lisinopril 20 mg twice daily, metoprolol succinate 50 mg twice daily and triamterene/hydrochlorothiazide 75-50 mg half a tablet daily at bedtime. 4. Paroxysmal atrial fibrillation. - Continue Eliquis 5 mg twice daily. - Continue Flecainide 100 mg twice a day. 5. COPD, present on admission. Stable - Do not believe this represents a COPD exacerbation.. - Ordered albuterol nebs every 4 hours as needed for shortness of breath. 6. Hyperlipidemia, present on admission. Stable. - Continue atorvastatin 20 mg daily. 7. Seasonal allergies, present on admission. Stable. - Continue Claritin 10 mg daily and nasonex 2 sprays intranasally daily. 8. Prediabetes, present on admission. Presumed stable. - Once able to take in PO recommend carbohydrate consistent/heart healthy diet. - Hemoglobin A1c 6.0% in 02/2016. Hemoglobin A1c pending. PRN antiemetics: Zofran and Maalox. PRN bowel regimen: Senna and MiraLAX. PRN analgesics: Tylenol, morphine, nitroglycerin. Patient is admitted under observation status with expected length of stay less than 2 midnights due to severity of presenting symptoms, risk of adverse event, and complexity of treatment plan. . VTE Prophylaxis: SCDs, Other (therapeutic Eliquis) Resuscitation Status: CPR: Attempt Resuscitation Attending Statement The patient was seen and examined together with Dr. Bo on 12/03 and I agree with the history, exam and plan as outlined in the note above. Geetha Bo DO Dec 03, 2016 02:35 Baljinder Eller MD Dec 03, 2016 06:38
[2016-12-03] MEDS: cefTRIAXone Inj 2,000 MG in Dextrose 5% Minibag Plus 50 ML IV SCH (06:30)
--- NOTE | 2016-12-03 06:33 | NUR ---
Admit Admitted to 2021 from ED via stretcher. Able to ambulate on arrival without any noted issues other than mild PATINO. RA w/o current c/o SOB at rest but does report SOB @ rest prior to admit with sternal pain for which patient rates at less than 1/10 currently. Tele SR. [facility] IV SL. Denies n/v or issues toileting. Personal belongings at bedside per patient request. Oriented to call light use with return demonstration.
[2016-12-03] MEDS ORDERED: KTC2C15 TP (06:44)
[2016-12-03] MEDS ORDERED: PANT500T PO (06:44)
[2016-12-03] MEDS: Sodium Chloride LOK Flush 10 mL Syringe IVFLUSH SCH ×2 (08:00→16:51)
[2016-12-03] MEDS: Fluticasone 0.05% 15 Spray/2 Gm 16 Gm Nasal Spray NASAL SCH (08:00)
[2016-12-03 08:15] LABS: Creatine Kinase 31 U/L (21-232); Magnesium 1.9 mg/dL (1.6-2.6)
[2016-12-03 08:24] LABS: TROPONIN T < 0.010 ug/L (0.0-0.011)
[2016-12-03] MEDS ORDERED: MeTOProlol XL 50 mg ER24 Tablet PO SCH ×2 (08:30→20:30)
--- NOTE | 2016-12-03 09:14 | NUR ---
Social Work: Initial Assessment D: Per EMR review, pt is a 66 year old male admitted for chest pain, PAP. Pt is Medicare with AARP supplement; pt has no LTC or VA benefits. PCP is Storm Swenson MD. NOK is Leny Farrell, spouse, . Advanced directives completed- CLERICAL PRODUCTION WORKER requested copy for chart. Readmit score not entered at this time. CLERICAL PRODUCTION WORKER met with the patient at bedside. Sw role explained, contact information and discharge planning checklist provided. Pt lives in [place] with his . Pt is I at baseline, works at [employer] the [employer], continues to drive and is I with all self-care. Pt lives in a single story home with a daylight basement; pt has ramp access to his home. Pt has never had HH or skilled rehab. Pt occasionally uses forearm crutches for ambulation due to existing arthritis. Pt reports no concerns or issues ambulating with this equipment. Pt states he anticipates discharging home when he is medically stable. A: Pt who is I at baseline. P: Evolving; Anticipate pt to discharge home via POV. CLERICAL PRODUCTION WORKER to continue to follow to assess for d/c needs. IVETTE Brumfield Addendum: 12/03/16 at 0919 by NIKITA MCDONALD Amended: Links added.
--- NOTE | 2016-12-03 11:02 | NUR ---
Case Management: Medicare PINEDA brochure provided with explanation - pt signed at 1010 - original to chart, copy to patient. Medicare drug coverage brochure provided. Yolanda Avalos RN
--- NOTE | 2016-12-03 15:00 | DRSVH ---
PROCEDURE: X-RAY CHEST ONE VIEW, PORTABLE ([id number]) INDICATIONS: CHEST PAIN, SHORT OF BREATH TECHNIQUE: One view of the chest was acquired. COMPARISON: [facility], CR, CHEST 2VW, 11/11/2011, 15:12. [facility], CT, C T ANGIO CHEST PE, 03/16/2016, 3:43. [facility], CT, CT ANGIO CHEST ABD, 11/30/2016, 9:58. [facility], CR, XR CHEST 1VW (PORTABLE), 12/01/2016, 15:55. FINDINGS: Surgical changes and devices: None. Lungs and pleura: No pleural effusions or pneumothorax. Chronic right mid and basilar pleural fat r edemonstrated. Bibasilar patchy airspace opacities are noted likely atelectasis. Mediastinum: Mediastinal contours appear normal. Heart size is normal. Bones and chest wall: No suspicious bony lesions. Overlying soft tissues appear unremarkable. IMPRESSION: Bibasilar opacities likely atelectasis. Correlate clinically to exclude developing pneumonia. Dictated by: Clay Grewal RRA Interpreted: Key Santoyo MD on 12/03/2016 at 8:44 Approved by: Key Santoyo M.D. on 12/03/2016 at 14:59
--- NOTE | 2016-12-03 15:30 | NUR ---
Cardiac stress test pt ordered for Nuclear Med Cardiac stress test. pt aware and consenting. pt alert and oriented. steady gait. denies chest pain. pt transported via wheelchair downstairs at about 1030am. ekg monitor tech informed. pt returned to room 2021 at about 1430. medical lab technologist informed of return.
[2016-12-03 15:54] LABS: Creatine Kinase 37 U/L (21-232)
[2016-12-03 15:56] LABS: TROPONIN T < 0.010 ug/L (0.0-0.011)
--- NOTE | 2016-12-03 17:53 | PCM.PNMED ---
Subjective Date of Service Dec 03, 2016 Subjective Patient presented with chest pain he describes as more pleuritic. CT of the chest to rule out PE was negative for embolism but did show consolidations and groundglass in the lower lobes bilaterally. Patient states he has had a pneumonia/pleurisy for a number of months. Patient's troponins have been negative. He was unable to exercise to obtain an adequate stress response, and switched to Lexiscan. We are currently awaiting those results. Exam Vital Signs Vital Sign - Last Date Time Temp Pulse Resp B/P Pulse Ox O2 Delivery O2 Flow Rate FiO2 12/03/16 15:57 36.9 116 18 127/71 97 Room Air Intake and Output 12/02/16 12/02/16 12/03/16 Cumulative From/Thru 15:00 23:00 07:00 12/02/16 23:13 - 12/03/16 03:27 Intake Total 0 ml 0 ml Balance 0 ml 0 ml Intake Oral 0 ml 0 ml Exam General: Obese male of stated age HEENT: PERRLA, EOMI, nonicteric, membranes moist Lymph: No lymphadenopathy Cardio: Regular rate and rhythm on exam Respiratory: CTA bilaterally and clear with no wheezes or crackles Abdomen: Soft, positive bowel sounds, nontender, nondistended Extremities: No edema, sensation intact Psych: Appropriate mood and affect; very talkative Neuro: CN II through XII grossly intact, sensation intact throughout Skin: No rash IVs and Medications Medications Reviewed: Medications were reviewed in detail Lab and Diagnostics Result Diagram: 12/02/16 2352 12/03/16 0021 X-Rays, CTs and MRIs Wet read by ED physician Chest Xray Interpretation 12/01/16: pleural thickening loculated effusion plate atelectasis bilaterally X-RAY CHEST ONE VIEW, PORTABLE 11/30/16 IMPRESSION: Increased pulmonary vascularity suggestive of edema. Left costophrenic blunting suggestive of trace effusion. Bibasilar opacities are present, possibly representing edema or atelectasis. Dictated by: Vidhya Streeter M.D. on 12/01/2016 at 15:22 . 12-lead ECG EKG: Sinus rhythm, heart rate 78, left axis, normal intervals, IVCD, normal R- wave progression, no pathological Q waves or acute ischemic changes such as ST elevation or depression. . Assessment & Plan Jefferson Welsh is a 66-year-old male with a past medical history significant for paroxysmal atrial fibrillation, hypertension, hyperlipidemia and COPD who presents to [facility] emergency Department complaining of chest pain. Acute chest pain, present on admission. Active. - The patient presented with sharp chest pain and pressure that sounds more pleuritic; patient had a recent stress test that was normal in June - EKG is unremarkable for ST changes - CTA performed on 11/30/2016 did not demonstrate any central pulmonary emboli, but did show lower lobe consolidations - Troponin negative 3 - Nitroglycerin and morphine as needed for chest pain. - Exercise stress test pending; we cannot do echo stress test here Likely CAP causing pleurisy, and possibly early parapneumonic effusion, present on admission. Active. - Consolidation seen on CT - Continue ceftriaxone and azithromycin - Blood cultures from 11/30/16 are negative to date. - Strep urinary antigen and respiratory PCR negative - Procalcitonin was checked on previous ED visit but not on admit - Repeat procalcitonin tomorrow with morning labs Rapid cycling paroxysmal atrial fibrillation with RVR; present admission; ongoing -Patient continues to flip in and out of atrial fibrillation, even with his current beta barbie -telemetry -Increasing metoprolol to 75 mg twice a day starting tonight -If uncontrolled in the a.m. we will consult cardiology -Continue Eliquis 5 mg twice daily. -Continue Flecainide 100 mg twice a day -Metoprolol 75 mg twice a day Prediabetes, present on admission. -Heart healthy and diabetic diet - Hemoglobin A1c 6.0% in 02/2016. - A1c pending. Hypertension- Continue amlodipine, lisinopril, and triamterene/ hydrochlorothiazide COPD-continue albuterol nebulizers every 4 hours Hyperlipidemia-Continue atorvastatin Allergies-Claritin and nasonex Status: Patient likely to discharge tomorrow pending control of his atrial fibrillation and a unremarkable stress test. Patient will need to follow-up with his primary care doctor. Pain Evaluation: Adequate Pain Control VTE Prophylaxis: SCDs, Other (therapeutic Eliquis) Resuscitation Status: CPR: Attempt Resuscitation Time spent 45 minutes Attending Statement I interviewed and examined the patient on rounds today. Counseled family members regarding status of current workup. I agree with the assessment and plan as stated above. Corby Rice DO Dec 03, 2016 17:53 Bruno Gordon MD Dec 03, 2016 18:21
[2016-12-03] MEDS ORDERED: MeTOProlol 1 mg/mL 5 mL Inj IVPUSH ONE (18:50)
--- NOTE | 2016-12-03 19:21 | NUR ---
Telemetry alerted by air sampling and monitoring pt's hr elevated to about 130-140s. checked in on pt. pt alert and oriented. pt stated he was returning from bathroom and settting up his cpap machine when his heart rate jumped up. informed. OT dose of IVP metoprolol. situation endorsed to noc nurse. care continues.
[2016-12-03] MEDS: MeTOProlol XL 50 mg ER24 Tablet PO SCH (19:54)
--- NOTE | 2016-12-03 20:34 | DRSVH ---
PROCEDURE: 1 DAY PHARMACOLOGICAL STRESS TEST Rest and pharmacological stress myocardial perfusion SPECT with gated imaging and ejection fraction RADIOPHARMACEUTICAL: 10.76 mCi Tc-99m tetrofosmin IV at rest and 32.5 mCi Tc-99m tetrofosmin IV at p eak effect of pharmacological stress. A rye-xct-edxvewte was performed. INDICATIONS: CHEST PAIN. TECHNIQUE: Radiopharmaceutical was injected at peak stress test, and also at rest. SPECT images wer e obtained. SPECT myocardial perfusion images were displayed in short axis, horizontal long axis, an d vertical long axis views. Gated images were reviewed using [employer] software. COMPARISON: None. CARDIAC STRESS: Initially patient attempted exercise perfusion study. He walked on Skinny protocol f or about 4 minutes and 40 seconds, however, achieved only 75% of target heart rate with normal blood pressure response. The patient developed fatigue and shortness of breath. He was on beta barbie an d Flecainide. As target heart rate was not achieved, exercise perfusion study was converted to Starla can perfusion study. The patient received IV Lexiscan as per standard protocol. A pharmacological s tress test was performed under the supervision of an attending staff using an infusion of Lexiscan as per protocol. Hemodynamic data: As stated above. Symptoms: The patient developed fatigue and shortness of breath. Aminophylline: 100 mg IV aminophylline. EKG: Baseline rhythm was sinus with underlying left anterior fascicular block and some nonspecific S T-T changes. During exercise as well as Lexiscan there were some nonspecific ST-T changes. No convi ncing significant ischemic changes seen. The patient has at baseline some pleuritic chest discomfort prior to the stress as well as continued during stress with headache as well. The patient received 100 mg of IV aminophylline. FINDINGS: Raw data: There is increased subdiaphragmatic activity. Left ventricle function: Gated images demonstrate normal left ventricular wall thickening. No segme ntal wall motion abnormalities. Upon visual inspection, no transient ischemic dilatation. Left vent ricular resting end-diastolic volume is 105 mL. Left ventricular stress ejection fraction is 74%. Myocardial perfusion: Stress supine and resting supine images reveal small-sized, mildly decreased p erfusion of basal inferior wall which resolved during prone images. However, prone images had mildly decreased perfusion of distal inferior wall which was not seen during stress supine or resting supin e images. I do not see any reversible ischemia. IMPRESSION: 1. I will call this study likely a normal myocardial perfusion study with evidence of diaphragmatic t issue attenuation artifact as well as some shifting tissue attenuation artifact. Details as stated a leatha. LV function is preserved. No obvious wall motion abnormalities. No convincing significant is chemic changes during Lexiscan. As far as perfusion scan is concerned, this is a low-risk myocardial perfusion scan. During exercise, the patient's functional aerobic impairment was +23% suggestive of decreased exercise tolerance. Correlate clinically. Dictated by: Waleska Tipton M.D. on 12/03/2016 at 16:26 Transcribed by: MONICA on 12/04/2016 at 12:57 Approved by: Waleska Tipton M.D. on 12/09/2016 at 14:51
--- NOTE | 2016-12-03 22:33 | NUR ---
heart rhythm: Pt had been into A-fib with RVR and c/o mild SOB and fluttering in chest. Pt was given his night medications at 1999. At 2225 pt had 3.2 sec pause on monitor and converted to sinus rhythm. pt was awake and stated he was feeling better.
[2016-12-04] VITALS (9 sets, daily range): BP systolic 104–116; BP diastolic 66–77; PULSE 65–124; RESP 16–22; O2SAT 94–98
[2016-12-04] MEDS: Sodium Chloride LOK Flush 10 mL Syringe IVFLUSH SCH ×4 (00:18→23:15)
--- NOTE | 2016-12-04 05:12 | NUR ---
Heart rhythm: Pt has been sleeping with CPAP on. Pt has been in and out of A-fib with SR rates in the 60-70s and A-fib rate 90-100. At 0452 pt was in A-fib and had a pause of 6.2 sec long and converted to sinus henri/sinus rhythm. pt remains stable denies any symptoms.
[2016-12-04] MEDS: cefTRIAXone Inj 2,000 MG in Dextrose 5% Minibag Plus 50 ML IV SCH (06:00)
[2016-12-04 06:31] LABS: BASOPHILS % (AUTO) 0.3 % (0-3); EOSINOPHILS % (AUTO) 1.5 % (0-5); MONOCYTES % (AUTO) 14.9 % (4-12); Mean Corpuscular Hemoglobin 28.5 pg (27.0-35.0); Mean Corpuscular Volume 85.4 fL (81-100); NEUTROPHILS % (AUTO) 67.1 % (40-74); Platelet Count 122 bil/L (150-400)
--- NOTE | 2016-12-04 06:33 | NUR ---
heart Rhythm: pt continues to flip in and out of A-fib with long pauses when going from A-fib to sinus henri. pacer pads were applied and Dr Abrams was notified EKG was obtained showing sinus tach 120s.
[2016-12-04 06:53] LABS: TROPONIN T 0.01 ug/L (0.0-0.011)
[2016-12-04] MEDS: Fluticasone 0.05% 15 Spray/2 Gm 16 Gm Nasal Spray NASAL SCH (09:25)
[2016-12-04] MEDS: MeTOProlol XL 50 mg ER24 Tablet PO SCH ×2 (09:26→19:55)
--- NOTE | 2016-12-04 11:16 | PCM.PNMED ---
Subjective Date of Service Dec 04, 2016 Subjective Overnight patient had variable rhythms including A-fib to Sinus tach and bradycardia, with witnessed and symptomatic 6 second pauses. Pt states that he frequently experiences lightheadedness at home that feels similar to the episodes last night. Pt was made NPO around 1045, last known meal was at 8-9 am. Exam Vital Signs Vital Sign - Last Date Time Temp Pulse Resp B/P Pulse Ox O2 Delivery O2 Flow Rate FiO2 12/04/16 10:26 123 20 106/66 94 Room Air 12/04/16 08:18 36.6 12/04/16 00:29 21 Intake and Output 12/03/16 12/03/16 12/04/16 Cumulative From/Thru 15:00 23:00 07:00 12/02/16 23:13 - 12/04/16 06:57 Intake Total 60 ml 760 ml 400 ml 1220 ml Output Total 1500 ml 1500 ml Balance 60 ml 760 ml -1100 ml -280 ml Intake Oral 760 ml 400 ml 1160 ml IV Total 60 ml 60 ml Output Urine Total 1500 ml 1500 ml # Voids 10 10 20 # Bowel Movements 2 2 Exam General: pleasant male in NAD Cardio: Regular rate and rhythm no murmurs rubs or gallops Respiratory: CTA bilaterally, no wheezes, no crackles Abdomen: Soft, positive bowel sounds, nontender, nondistended Extremities: No edema, 5/5 strength, sensation intact Psych: Appropriate mood and affect Neuro: CN II through XII grossly intact, sensation intact throughout Skin: No rash IVs and Medications Medications Reviewed: Medications were reviewed in detail Lab and Diagnostics Result Diagram: 12/04/16 0610 12/04/16 0610 X-Rays, CTs and MRIs Wet read by ED physician Chest Xray Interpretation 12/01/16: pleural thickening loculated effusion plate atelectasis bilaterally X-RAY CHEST ONE VIEW, PORTABLE 11/30/16 IMPRESSION: Increased pulmonary vascularity suggestive of edema. Left costophrenic blunting suggestive of trace effusion. Bibasilar opacities are present, possibly representing edema or atelectasis. Dictated by: Vidhya Streeter M.D. on 12/01/2016 at 15:22 . 12-lead ECG EKG: Sinus rhythm, heart rate 78, left axis, normal intervals, IVCD, normal R- wave progression, no pathological Q waves or acute ischemic changes such as ST elevation or depression. . Assessment & Plan Jefferson Welsh is a 66-year-old male with a past medical history significant for paroxysmal atrial fibrillation, hypertension, hyperlipidemia and COPD who presents to [facility] emergency Department complaining of chest pain. Rapid cycling paroxysmal atrial fibrillation with RVR; present admission; ongoing -Patient continues to flip in and out of atrial fibrillation, even with his current beta barbie -Last night he had variable rhythms with 6 second pauses -Increased metoprolol to 100 mg twice a day that started last night; change to 75mg today per cardio recs -Continued Eliquis 5 mg twice daily. -Continue Flecainide 100 mg twice a day -Consulted Dr. Rausch who discussed with Dr. Robins -Scheduled for Wednesday for pacer -telemetry Possible CAP with chronic pleurisy, present on admission. Active. - Consolidation seen on CT - Continue ceftriaxone and azithromycin - Blood cultures from 11/30/16 are negative to date. - Strep urinary antigen and respiratory PCR negative - Procal pending down from previous draw in ED 3 days ago (current 0.13) Acute chest pain, present on admission. resolved - The patient presented with sharp chest pain and pressure that sounds more pleuritic; patient had a recent stress test that was normal in June - EKG is unremarkable for ST changes - CTA performed on 11/30/2016 did not demonstrate any central pulmonary emboli, but did show lower lobe consolidations - Troponin negative 3 - Nitroglycerin and morphine as needed for chest pain. - Exercise stress test unremarkable Prediabetes, present on admission. - Heart healthy and diabetic diet - Hemoglobin A1c 6.0% in 02/2016. - A1c 5.8 Hypertension- Continue amlodipine, lisinopril, and triamterene/ hydrochlorothiazide COPD-continue albuterol nebulizers every 4 hours Hyperlipidemia-Continue atorvastatin Allergies-Claritin and nasonex Status: Pacer planned for wednesday with dc likely wednesday Pain Evaluation: Adequate Pain Control VTE Prophylaxis: SCDs, Other (therapeutic Eliquis) Resuscitation Status: CPR: Attempt Resuscitation Attending Statement I interviewed and examined the patient on rounds today. I agree with the assessment and plan as stated above. Corby Rice DO Dec 04, 2016 11:15 Bruno Gordon MD Dec 06, 2016 07:06
--- NOTE | 2016-12-04 12:22 | NUR ---
Case Management: [facility] delivered and charted. Signed original placed in chart. Copy left at bedside. Prudence Renee RN
--- NOTE | 2016-12-04 16:55 | PCM.CHPCAR ---
Consult Subjective Date of service Dec 04, 2016 Date of admit Dec 03, 2016 at 02:50 Provider Requesting Consult Requesting Provider: Bruno Gordon MD Primary Care Physician Primary Care Physician: Storm Swenson MD Chief Complaint chest pain History of Present Illness 66 yo M h/o HTN, HLD, and paroxysmal AF here with chest pain and now having atrial fibrillation with RVR and tachybrady syndrome. Patient states that he was having chest pain related to his pleurisy but the pain got worse yesterday and he therefore came to our emergency room for further care. Once he was ruled out of acute coronary syndrome he underwent nuclear study that was low risk for ischemia. During the hospitalization, patient's rhythm changed from sinus rhythm to atrial fibrillation with rapid ventricular response. Overnight , patient had a conversion pause lasting over 6 seconds before he converted back into atrial fibrillation. During the conversion pause, he had significant lightheadedness which he has had in the past episodically. Patient continues to have shortness of breath with his rapid ventricular response related to atrial fibrillation. Patient has been having some bleeding issues due to weather changes but denies fevers. He is being treated for a possible pneumonia. Review of Systems Review of Systems Per history of present illness and otherwise unremarkable PMH Past Medical History # Atrial fibrillation: diagnosed 02/2016. EF normal. # SVT: palpitations resolved with propranolol # Sleep apnea # Hypertension # Hyperlipidemia # Polycythemia: unclear if primary or secondary # Melanoma Scheduled Amlodipine (Amlodipine) 10 Mg Tablet 10 MG PO DAILY (Reported) Apixaban (Eliquis) 5 Mg Tablet 5 MG PO BID (Reported) Atorvastatin (Lipitor) 20 Mg Tablet 20 MG PO DAILY (Reported) Cefdinir (Cefdinir) 300 Mg Capsule 300 MG PO BID Cholecalciferol (Vitamin D3) (Vitamin D3) 2,000 Unit Tablet 2,000 UNIT PO DAILY (Reported) Doxycycline Hyclate (Doxycycline Hyclate) 100 Mg Tablet 100 MG PO BID Flecainide Acetate (Flecainide Acetate) 100 Mg Tablet 100 MG PO BID (Reported) Gluc/Marek-MSM#1/Vit C/Jomar/Bor (Icfpnnt-Ajsho-JLC Complex Cplt) 1 Each Tablet 1 EACH PO BID (Reported) Ketoconazole (Ketoconazole) 15 Gm Cream..g. 15 GM TP BID (Reported) apply to affected areas of feet twice a day Lisinopril (Lisinopril) 20 Mg Tablet 20 MG PO BID (Reported) Loratadine (Claritin) 10 Mg Capsule 10 MG PO DAILY (Reported) Metoprolol Succinate ER (Metoprolol Succinate ER) 50 Mg Tab.er.24h 50 MG PO BID (Reported) Mometasone Furoate (Nasonex) 17 Gm [place].pump 2 SPRAY NS DAILY (Reported) Multivitamin (Once Daily) 1 Each Tablet 1 EACH PO DAILY (Reported) Pantothenic Acid (Pantothenic Acid) 500 Mg Tablet 500 MG PO DAILY (Reported) Triamterene/HCTZ 75-50 mg (Triamterene/HCTZ 75-50 mg) 1 Each Tablet 0.5 TABLET PO HS (Reported) Scheduled PRN Albuterol HFA (Proair HFA) 8.5 Gm Hfa.aer.ad 2 PUFFS INHALATION Q4H PRN PRN For Shortness of Breath (Reported) Hydrocodone-Acetaminophen 5-325 mg (Hydrocodone-Acetaminophen 5-325 mg) 1 Each Tablet 1 TABLET PO Q4H PRN PRN For Pain Discontinued Medications Aspirin (Aspirin) 81 Mg Tablet 81 MG PO DAILY (Reported) Ca Carb & Gluc/Mag Ox & Gluc (Calcium Magnesium Caplet) 1 Each Tablet 1 EACH PO DAILY (Reported) Ketoconazole (Ketoconazole) 15 Gm Cream..g. 1 APPLIC TOP DAILY (Reported) Levofloxacin (Levaquin) 750 Mg Tablet 750 MG PO DAILY [place]-3 Fatty Acids/Fish Oil ([place] 3 Fish Oil Softgel) 1 Each Capsule.dr 2 EACH PO DAILY (Reported) Pantothenic Acid (Pantothenic Acid) 500 Mg Tablet 500 MG PO DAILY (Reported) Prednisone (PredniSONE) 20 Mg Tablet 40 MG PO DAILY Current Inpatient Medications Current Medications Hydromorphone HCl 1 mg Q15MIN PRN IVPUSH; Start 12/02/16 at 23:35; Stop at 03:10; Status DC Metoprolol Tartrate 5 mg Q5MIN IVPUSH Last administered on 12/03/16 02:12; Admin Dose 5 MG; Start 12/03/16 at 02:05 Sodium Chloride 10 ml BRITTANY IVFLUSH Last administered on 12/04/16 08:28; Admin Dose 10 ML; Start 12/03/16 at 08:30 Aspirin 81 mg DAILY PO; Start 12/03/16 at 08:30; Stop 12/03/16 at 08:30; Status DC Al Hydrox/Mg Hydrox/Simethicone 30 ml Q6 PRN PO; Start 12/03/16 at 02:50 Ondansetron HCl 4-8 mg prn nausea Q4 PRN IVPUSH; Start 12/03/16 at 02:50 Senna 1 tablet BID PRN PO; Start 12/03/16 at 02:50 Polyethylene Glycol 17 gm DAILY PRN PO; Start 12/03/16 at 02:50 Acetaminophen 325 mg Q6 PRN PO; Start 12/03/16 at 02:50 Nitroglycerin 0.4 mg Q5MIN PRN SL; Start 12/03/16 at 02:50 Morphine Sulfate 1-5 mg prn pain not relie... Q5M PRN IVPUSH; Start 12/03/16 at 02:50 Atropine Sulfate for symptomatic bradycar... Q5MIN PRN IVPUSH; Start 12/03/16 at 02:50 Apixaban 5 mg BID PO Last administered on 12/04/16 09:25; Admin Dose 5 MG; Start 12/03/16 at 08:30 Atorvastatin Calcium 20 mg DAILY PO Last administered on 12/04/16 09:25; Admin Dose 20 MG; Start 12/03/16 at 08:30 Acetaminophen/ Hydrocodone Bitart 1 tablet Q4H PRN PO; Start 12/03/16 at 04:05 Lisinopril 20 mg BID PO Last administered on 12/03/16 19:54; Admin Dose 20 MG; Start 12/03/16 at 08:30 Metoprolol Succinate 50 mg BID PO Last administered on 12/03/16 08:01; Admin Dose 50 MG; Start 12/03/16 at 08:30; Stop 12/03/16 at 15:13; Status DC Amlodipine Besylate 10 mg DAILY PO Last administered on 12/03/16 08:01; Admin Dose 10 MG; Start 12/03/16 at 08:30 Flecainide Acetate 100 mg BID PO Last administered on 12/04/16 09:26; Admin Dose 100 MG; Start 12/03/16 at 08:30 Loratadine 10 mg DAILY PO Last administered on 12/04/16 09:25; Admin Dose 10 MG ; Start 12/03/16 at 08:30 Fluticasone Propionate 2 spray DAILY NASAL Last administered on 12/04/16 09:25 ; Admin Dose 2 SPRAY; Start 12/03/16 at 08:30 Triamterene/HCTZ 1 capsule HS PO Last administered on 12/03/16 19:54; Admin Dose 1 CAPSULE; Start 12/03/16 at 21:00 Albuterol 2.5 mg 2.5 mg Q4H PRN NEB; Start 12/03/16 at 04:10 Ceftriaxone Sodium/Dextrose/ Water 50 ml @ 100 mls/hr Q24H IV Last administered on 12/04/16 06:00; Admin Dose 100 MLS/HR; Start 12/03/16 at 06:00 Azithromycin 500 mg DAILY PO Last administered on 12/04/16 09:27; Admin Dose 500 MG; Start 12/03/16 at 08:30 Metoprolol Succinate 75 mg BID PO; Start 12/03/16 at 20:30; Stop 12/03/16 at 20: 30; Status DC Metoprolol Succinate 100 mg BID PO Last administered on 12/04/16 09:26; Admin Dose 100 MG; Start 12/03/16 at 20:30; Stop 12/04/16 at 11:23; Status DC Metoprolol Succinate 75 mg BID PO; Start 12/04/16 at 20:30 Allergies: Coded Allergies: Penicillins (Verified Allergy, Severe, PARALYSIS, 03/16/16) 30 YEARS AGO Family History Family History Mother in the age of 80 from breast cancer Social History Hx Alcohol Use: Yes (Rarely)Hx Substance Use: No Smoking Status: Former Smoker (1-2 PPD x 10 years, quit 30 years ago) Exam Vital Signs Vital Sign - Last Date Time Temp Pulse Resp B/P Pulse Ox O2 Delivery O2 Flow Rate FiO2 12/04/16 16:13 37.3 124 16 104/71 94 Room Air 12/04/16 00:29 21 Intake and Output 12/03/16 12/03/16 12/04/16 Cumulative From/Thru 14:59 22:59 06:59 12/02/16 23:13 - 12/04/16 06:57 Intake Total 60 ml 760 ml 400 ml 1220 ml Output Total 1500 ml 1500 ml Balance 60 ml 760 ml -1100 ml -280 ml Intake Oral 760 ml 400 ml 1160 ml IV Total 60 ml 60 ml Output Urine Total 1500 ml 1500 ml # Voids 10 10 20 # Bowel Movements 2 2 Objective General appearance: No apparent distress, well-nourished, pleasant, cooperative HEET: Normocephalic atraumatic, no scleral icterus, tongue midline, mucous membranes moist Neck: supple Cardiovascular: irregularly irregular, normal S1 and normal S2, no murmurs/ rubs /gallops, PMI nondisplaced, no JVD, 1+ peripheral edema b/l Respiratory: Good aeration, CTAB Abdomen: Soft, nontender, nondistended, + bowel sounds Neuro: Alert, no facial droop, tongue midline, able to walk down the hallway without any difficulty Psych: appropriate affect Skin: no rashes on face, neck, and lower extremities Lab and Diagnostics Result Diagram: 12/04/1660912/04/16 0610 X-Rays, CTs and MRIs Nuclear pharmaceutical stress 12/03/2016: Normal perfusion study. Assessment & Plan Assessment 66 yo M h/o HTN, HLD, and paroxysmal AF here with chest pain. Cardiology consulted for atrial fibrillation with RVR and tachybrady syndrome. # AFib with RVR and tachybrady syndrome: Patient having significant symptoms with rapid ventricular response to atrial fibrillation. Unfortunately, he developed significant conversion pauses of over 6 seconds with high doses of metoprolol. I spent significant time educated the patient about his condition and answered his questions. I recommended that the patient get gentle up titration of metoprolol and be referred to electrophysiology for pacemaker. Recommendations as below: - Increase metoprolol XL from 50mg bid (home dose) to 75mg bid - Stop eliquis given patient needs pacemaker and restart after pacemaker. - Continue flecainide 100mg bid. If the patient doesn't convert with flecainide , we may have to cardiovert him on Wednesday when patient can be on eliquis # Chest pain: suspected to be related to pleurisy. Nuc stress low risk study. - Continue to monitor # Dyspnea: now related with rapid ventricular response. But patient possibly also has pneumonia. - Continue antibiotics per primary team Thank you for the interesting consultation. Cardiology will continue to follow Pain Evaluation: Adequate Pain Control VTE Prophylaxis: SCDs, Other (therapeutic Eliquis) Resuscitation Status: CPR: Attempt Resuscitation Nano Rausch MD Dec 04, 2016 16:55
[2016-12-05] VITALS (9 sets, daily range): BP systolic 107–125; BP diastolic 67–77; PULSE 62–122; RESP 16–18; O2SAT 95–97
--- NOTE | 2016-12-05 03:09 | NUR ---
Rhythm Pt in a-fib 90's when 5.2 second pause observed on monitor, then converted to SR. Pt states it woke him up, appears slightly diaphoretic. Defib pads attached, pt Dr. Augustine given FYI.
[2016-12-05 04:15] LABS: BASOPHILS % (AUTO) 0.3 % (0-3); EOSINOPHILS % (AUTO) 2.4 % (0-5); MONOCYTES % (AUTO) 11.4 % (4-12); Mean Corpuscular Hemoglobin 28.3 pg (27.0-35.0); Mean Corpuscular Volume 85.3 fL (81-100); NEUTROPHILS % (AUTO) 66.8 % (40-74); Platelet Count 151 bil/L (150-400)
[2016-12-05 04:55] LABS: Magnesium 2.1 mg/dL (1.6-2.6)
[2016-12-05] MEDS: cefTRIAXone Inj 2,000 MG in Dextrose 5% Minibag Plus 50 ML IV SCH (05:33)
[2016-12-05] MEDS: Sodium Chloride LOK Flush 10 mL Syringe IVFLUSH SCH ×2 (07:45→16:27)
[2016-12-05] MEDS: MeTOProlol XL 50 mg ER24 Tablet PO SCH ×2 (08:44→21:12)
[2016-12-05] MEDS: Fluticasone 0.05% 15 Spray/2 Gm 16 Gm Nasal Spray NASAL SCH (08:45)
--- NOTE | 2016-12-05 11:56 | NUR ---
Inpatient status effective 12/04/16
--- NOTE | 2016-12-05 16:17 | PCM.PNMED ---
Subjective Date of Service Dec 05, 2016 Subjective 66-year-old male with history of paroxysmal A. fib, hypertension and COPD presents with chest pain and rapid atrial fibrillation; subsequently developed conversion pauses, now awaiting pacemaker placement His conversion pauses or symptomatic with acute diaphoresis and presyncopal cognitive symptoms. Experienced this last evening, but none since. Is also symptomatic during A. fib with a chest fluttering, which also has not recurred since yesterday. Exam Vital Signs Vital Sign - Last Date Time Temp Pulse Resp B/P Pulse Ox O2 Delivery O2 Flow Rate FiO2 12/05/16 13:19 37.0 74 18 107/67 97 Room Air 12/04/16 23:26 21 Intake and Output 12/04/16 12/04/16 12/05/16 Cumulative From/Thru 15:00 23:00 07:00 12/02/16 23:13 - 12/05/16 05:53 Intake Total 1191 ml 172 ml 2583 ml Output Total 975 ml 2475 ml Balance 216 ml 172 ml 108 ml Intake Oral 1036 ml 2196 ml IV Total 155 ml 172 ml 387 ml Output Urine Total 975 ml 2475 ml # Voids 1 21 # Bowel Movements 3 5 Exam General: Sitting on side of bed conversing comfortably, no acute distress HEENT: sclerae anicteric, oral mucosa moist Neck: no JVD Chest: clear to auscultation Cardiac: S1S2, distant heart sounds, no murmur Abdomen: BS normal, non-tender Extremities: No pitting edema Neuro: A&O, cranial nerves symmetric, motor strength 5/5, coordination normal IVs and Medications Medications Reviewed: Medications were reviewed in detail Lab and Diagnostics Result Diagram: 12/05/1640412/05/16404 X-Rays, CTs and MRIs PROCEDURE: X-RAY CHEST ONE VIEW, PORTABLE ([id number]) IMPRESSION: Bibasilar opacities likely atelectasis. Correlate clinically to exclude developing pneumonia. Dictated by: Clay Grewal RRPerla Interpreted: Key Santoyo MD on 12/03/2016 at 8:44 . 12-lead ECG EKG: Sinus rhythm, heart rate 78, left axis, normal intervals, IVCD, normal R- wave progression, no pathological Q waves or acute ischemic changes such as ST elevation or depression. . Assessment & Plan Jefferson Farrell is a 66-year-old male with a past medical history significant for paroxysmal atrial fibrillation, hypertension, hyperlipidemia and COPD who presents to [facility] emergency Department complaining of chest pain. Rapid cycling paroxysmal atrial fibrillation with RVR; present admission; ongoing. He has demonstrated paroxysmal A. fib with up to 6 second conversion pauses. Increasingly in sinus rhythm as of 12/05. -Continue Flecainide 100 mg twice a day -Metoprolol; change to 75mg today per cardio recs -Holding his chronic Eliquis 5 mg twice daily, in anticipation of pacemaker placement. -Consulted Dr. Rausch who discussed with Dr. Robins -Scheduled for Wednesday for pacer -telemetry Possible CAP with chronic pleurisy, present on admission. Active. He has a long-standing history of recurrent chest pain with x-ray abnormalities resulting antibiotic treatment. This seems to be a chronic and recurrent undiagnosed pulmonary problem. Consolidation seen on CT. Blood cultures, Strep urinary antigen and respiratory PCR negative. He does not seem to be actively infected but we have treated for CAP, which will be continued in light of his pacemaker placement for Wednesday. - Continue ceftriaxone and azithromycin Acute chest pain, present on admission. resolved - The patient presented with sharp chest pain and pressure that sounds more pleuritic; patient had a recent stress test that was normal in June - EKG is unremarkable for ST changes - CTA performed on 11/30/2016 did not demonstrate any central pulmonary emboli, but did show lower lobe consolidations - Troponin negative 3 - Nitroglycerin and morphine as needed for chest pain. - Exercise stress test unremarkable Prediabetes, present on admission. - Heart healthy and diabetic diet - Hemoglobin A1c 6.0% in 02/2016. - A1c 5.8 Hypertension- Continue amlodipine, lisinopril, and triamterene/ hydrochlorothiazide COPD-continue albuterol nebulizers every 4 hours Hyperlipidemia-Continue atorvastatin Allergies-Claritin and nasonex Status: Pacer planned for wednesday with dc likely wednesday VTE Prophylaxis: SCDs, Other (therapeutic Eliquis) Resuscitation Status: CPR: Attempt Resuscitation Time spent 35 minutes Bruno Gordon MD Dec 05, 2016 16:17
[2016-12-06] VITALS (9 sets, daily range): BP systolic 116–123; BP diastolic 70–78; PULSE 52–78; RESP 16–20; O2SAT 95–97
[2016-12-06] MEDS: Sodium Chloride LOK Flush 10 mL Syringe IVFLUSH SCH ×4 (00:34→23:53)
[2016-12-06] MEDS: cefTRIAXone Inj 2,000 MG in Dextrose 5% Minibag Plus 50 ML IV SCH (05:58)
--- NOTE | 2016-12-06 06:43 | NUR ---
Tele Mostly SR all shift until around 0600 when HR decreased 40-60's but has remained in SR. Asymptomatic without any complaints. Currently resting in not distress.
[2016-12-06] MEDS: Fluticasone 0.05% 15 Spray/2 Gm 16 Gm Nasal Spray NASAL SCH (09:45)
[2016-12-06] MEDS: MeTOProlol XL 50 mg ER24 Tablet PO SCH ×2 (09:58→20:15)
--- NOTE | 2016-12-06 11:05 | PCM.PNCARD ---
Subjective Date of service Dec 06, 2016 Chief Complaint chest pain History of Present Illness 66 yo M h/o HTN, HLD, and paroxysmal AF here with chest pain and now having atrial fibrillation with RVR and tachybrady syndrome. Patient states that he was having chest pain related to his pleurisy but the pain got worse yesterday and he therefore came to our emergency room for further care. Once he was ruled out of acute coronary syndrome he underwent nuclear study that was low risk for ischemia. During the hospitalization, patient's rhythm changed from sinus rhythm to atrial fibrillation with rapid ventricular response. Overnight , patient had a conversion pause lasting over 6 seconds before he converted back into atrial fibrillation. During the conversion pause, he had significant lightheadedness which he has had in the past episodically. Patient continues to have shortness of breath with his rapid ventricular response related to atrial fibrillation. Patient has been having some bleeding issues due to weather changes but denies fevers. He is being treated for a possible pneumonia. Subjective: Patient's rhythm converted from atrial fibrillation to sinus rhythm over 24 hours ago and remains in sinus rhythm. He feels back to his baseline now. PROBLEM LIST: # Atrial fibrillation: diagnosed 02/2016. EF normal. # SVT: palpitations resolved with propranolol # Sleep apnea # Hypertension # Hyperlipidemia # Polycythemia: unclear if primary or secondary # Melanoma history Exam Vital Signs Vital Sign - Last Date Time Temp Pulse Resp B/P Pulse Ox O2 Delivery O2 Flow Rate FiO2 12/06/16 08:08 37.0 58 16 116/74 97 Room Air 12/06/16 00:45 21 Intake and Output 12/05/16 12/05/16 12/06/16 Cumulative From/Thru 14:59 22:59 06:59 12/02/16 23:13 - 12/06/16 06:59 Intake Total 400 ml 760 ml 300 ml 4043 ml Output Total 750 ml 825 ml 700 ml 4750 ml Balance -350 ml -65 ml -400 ml -707 ml Intake Oral 400 ml 760 ml 300 ml 3656 ml IV Total 0 ml 387 ml Output Urine Total 750 ml 825 ml 700 ml 4750 ml # Voids 1 22 # Bowel Movements 1 6 General appearance: No apparent distress, well-nourished, pleasant, cooperative HEET: Normocephalic atraumatic, no scleral icterus, tongue midline, mucous membranes moist Neck: supple Cardiovascular: irregularly irregular, normal S1 and normal S2, no murmurs/ rubs /gallops, PMI nondisplaced, no JVD, 1+ peripheral edema b/l Respiratory: Good aeration, CTAB Abdomen: Soft, nontender, nondistended, + bowel sounds Neuro: Alert, no facial droop, tongue midline, no gross motor deficits Lab and Diagnostics Result Diagram: 12/05/1640412/05/16404 X-Rays, CTs and MRIs Nuclear pharmaceutical stress 12/03/2016: Normal perfusion study. Assessment & Plan Assessment 66 yo M h/o HTN, HLD, and paroxysmal AF admitted with chest pain. Cardiology consulted for atrial fibrillation with RVR and tachybrady syndrome. # AFib and tachybrady syndrome: Patient had significant symptoms with rapid ventricular response to atrial fibrillation. Unfortunately, he developed symptomatic conversion pauses of over 5 seconds with metoprolol. He had a conversion pause of 6.3 seconds while on metoprolol XL 100mg bid on 12/04/2016 and he had a conversion pause of about 5.4 seconds while on metoprolol XL 75mg bid on 12/05/2016. He has had these spells of lightheadedness lasting few seconds episodically for the few years but lately they have been occurring about 2-3 times per month. Patient has maintained sinus rhythm for over 24 hours now and feels back to his baseline. I spent significant time educated the patient about his condition and answered his questions. I recommended that the patient get gentle up titration of metoprolol and be referred to electrophysiology for pacemaker. Recommendations as below: - Continue metoprolol XL 75mg bid - Stop eliquis given patient needs pacemaker and restart after pacemaker. - Continue flecainide 100mg bid - EP consult tomorrow for pacemaker placement # Chest pain: suspected to be related to pleurisy. Nuc stress low risk study. - Continue to monitor # Dyspnea: now related with rapid ventricular response. But patient possibly also has pneumonia. - Continue antibiotics per primary team Thank you for the interesting consultation. Cardiology will continue to follow. Problems: Pain Evaluation: Adequate Pain Control VTE Prophylaxis: SCDs, Other (therapeutic Eliquis) Resuscitation Status: CPR: Attempt Resuscitation Nano Rausch MD Dec 06, 2016 11:05
--- NOTE | 2016-12-06 13:13 | PCM.PNMED ---
Subjective Date of Service Dec 06, 2016 Subjective Patient doing well this morning. No complaints. No additional episodes of lightheadedness. Exam Vital Signs Vital Sign - Last Date Time Temp Pulse Resp B/P Pulse Ox O2 Delivery O2 Flow Rate FiO2 12/06/16 08:08 37.0 58 16 116/74 97 Room Air 12/06/16 00:45 21 Intake and Output 12/05/16 12/05/16 12/06/16 Cumulative From/Thru 15:00 23:00 07:00 12/02/16 23:13 - 12/06/16 06:59 Intake Total 400 ml 760 ml 300 ml 4043 ml Output Total 750 ml 825 ml 700 ml 4750 ml Balance -350 ml -65 ml -400 ml -707 ml Intake Oral 400 ml 760 ml 300 ml 3656 ml IV Total 0 ml 387 ml Output Urine Total 750 ml 825 ml 700 ml 4750 ml # Voids 1 22 # Bowel Movements 1 6 Exam General: pleasant male in NAD Cardio: Regular rate and rhythm no murmurs rubs or gallops Respiratory: CTA bilaterally, no wheezes, no crackles Abdomen: Soft, positive bowel sounds, nontender, nondistended Extremities: No edema, 5/5 strength, sensation intact Psych: Appropriate mood and affect Neuro: CN II through XII grossly intact, sensation intact throughout Skin: No rash IVs and Medications Medications Reviewed: Medications were reviewed in detail Lab and Diagnostics Result Diagram: 12/05/165 12/05/16 040 X-Rays, CTs and MRIs PROCEDURE: X-RAY CHEST ONE VIEW, PORTABLE ([id number]) IMPRESSION: Bibasilar opacities likely atelectasis. Correlate clinically to exclude developing pneumonia. Dictated by: Clay Grewal RRA Interpreted: Key Santoyo MD on 12/03/2016 at 8:44 . 12-lead ECG EKG: Sinus rhythm, heart rate 78, left axis, normal intervals, IVCD, normal R- wave progression, no pathological Q waves or acute ischemic changes such as ST elevation or depression. . Assessment & Plan Jefferson Farrell is a 66-year-old male with a past medical history significant for paroxysmal atrial fibrillation, hypertension, hyperlipidemia and COPD who presents to [facility] emergency Department complaining of chest pain. Rapid cycling paroxysmal atrial fibrillation with RVR; present admission; ongoing. -He has demonstrated paroxysmal A. fib with up to 6 second conversion pauses. Increasingly in sinus rhythm as of 12/05. -Continue Flecainide 100 mg twice a day -Metoprolol; change to 75mg today per cardio recs -Holding his chronic Eliquis 5 mg twice daily, in anticipation of pacemaker placement. -Consulted Dr. Rausch who discussed with Dr. Robins -Scheduled for Wednesday for pacer -telemetry Possible CAP with chronic pleurisy, present on admission. Active. - He has a long-standing history of recurrent chest pain with x-ray abnormalities resulting antibiotic treatment. This seems to be a chronic and recurrent undiagnosed pulmonary problem. Consolidation seen on CT. Blood cultures, Strep urinary antigen and respiratory PCR negative. He does not seem to be actively infected but we have treated for CAP, which will be continued in light of his pacemaker placement for Wednesday. - Continue ceftriaxone and azithromycin Acute chest pain, present on admission. resolved - The patient presented with sharp chest pain and pressure that sounds more pleuritic; patient had a recent stress test that was normal in June - EKG is unremarkable for ST changes - CTA performed on 11/30/2016 did not demonstrate any central pulmonary emboli, but did show lower lobe consolidations - Troponin negative 3 - Nitroglycerin and morphine as needed for chest pain. - Exercise stress test unremarkable Prediabetes, present on admission. - Heart healthy and diabetic diet - Hemoglobin A1c 6.0% in 02/2016. - A1c 5.8 Hypertension- Continue amlodipine, lisinopril, and triamterene/ hydrochlorothiazide COPD-continue albuterol nebulizers every 4 hours Hyperlipidemia-Continue atorvastatin Allergies-Claritin and nasonex Status: Pacer planned for wednesday with dc likely wednesday Pain Evaluation: Adequate Pain Control VTE Prophylaxis: SCDs, Other (therapeutic Eliquis) Resuscitation Status: CPR: Attempt Resuscitation Time spent 30 minutes Attending Statement I interviewed and examined the patient on rounds today. I agree with the assessment and plan as stated above. Corby Rice DO Dec 06, 2016 13:13 Bruno Gordon MD Dec 06, 2016 18:44
--- NOTE | 2016-12-06 17:26 | NUR ---
Tele Pt in sinus rhythm through the shift, at times bradycardic with rate in the 50's. Denies chest pain. Denies dizziness.
[2016-12-07] VITALS (16 sets, daily range): BP systolic 110–130; BP diastolic 63–83; PULSE 60–65; RESP 16–18; O2SAT 93–98
--- NOTE | 2016-12-07 05:50 | NUR ---
tele/no pain pts tele SR no ectopy noted, pt NPO for pace maker placement today, pt denies any pain, on RA during the day and home cpap at HS
[2016-12-07] MEDS: cefTRIAXone Inj 2,000 MG in Dextrose 5% Minibag Plus 50 ML IV SCH (05:54)
[2016-12-07 07:39] LABS: BASOPHILS % (AUTO) 0.6 % (0-3); EOSINOPHILS % (AUTO) 3.2 % (0-5); MONOCYTES % (AUTO) 10.6 % (4-12); Mean Corpuscular Hemoglobin 28.6 pg (27.0-35.0); Mean Corpuscular Volume 85.2 fL (81-100); NEUTROPHILS % (AUTO) 63.7 % (40-74); Platelet Count 96 bil/L (150-400)
[2016-12-07 08:03] LABS: INR 1.03 ratio
[2016-12-07] MEDS: Sodium Chloride LOK Flush 10 mL Syringe IVFLUSH SCH ×2 (10:01→17:27)
[2016-12-07] MEDS: MeTOProlol XL 50 mg ER24 Tablet PO SCH ×2 (10:02→20:18)
[2016-12-07] MEDS: Fluticasone 0.05% 15 Spray/2 Gm 16 Gm Nasal Spray NASAL SCH (10:36)
[2016-12-07] MEDS ORDERED: Heparin 10,000 Unit/1,000 mL NS Premix IV ONE (11:46)
[2016-12-07] MEDS ORDERED: 0.9% Sodium Chloride 250 ML ONE (11:47)
[2016-12-07] MEDS ORDERED: Vancomycin 1,000 mg Inj ONE (11:47)
[2016-12-07] MEDS ORDERED: Bupivacaine-MPF 0.5% 30 mL Inj ONE (11:47)
[2016-12-07] MEDS ORDERED: Water for Injection 50 ML IV ONE (11:49)
[2016-12-07] MEDS ORDERED: fentaNYL-PF 50 mCg/mL 2 mL Inj ONE ×2 (12:30→12:49)
[2016-12-07] MEDS: 0.9% Sodium Chloride 1,000 ML IV SCH ×2 (13:29→22:32)
--- NOTE | 2016-12-07 14:10 | PCM.PNMED ---
Subjective Date of Service Dec 07, 2016 Subjective 66-year-old male who presented with chest pain and reports of intermittent lightheadedness and syncope/near syncope Patient continued to do well overnight. His white count was normalized. His procalcitonin is decreased. Patient scheduled for pacemaker today. No complaints. Exam Vital Signs Vital Sign - Last Date Time Temp Pulse Resp B/P Pulse Ox O2 Delivery O2 Flow Rate FiO2 12/07/16 13:55 60 16 111/72 93 Room Air 12/07/16 07:56 36.7 12/06/16 21:00 21 Intake and Output 12/06/16 12/06/16 12/07/16 Cumulative From/Thru 15:00 23:00 07:00 12/02/16 23:13 - 12/07/16 06:43 Intake Total 1160 ml 1231 ml 6434 ml Output Total 1550 ml 1350 ml 7650 ml Balance -390 ml -119 ml -1216 ml Intake Oral 1160 ml 1156 ml 5972 ml IV Total 75 ml 462 ml Output Urine Total 1550 ml 1350 ml 7650 ml # Voids 22 # Bowel Movements 3 9 Exam General: pleasant male in NAD Cardio: Regular rate and rhythm no murmurs rubs or gallops Respiratory: CTA bilaterally, no wheezes, no crackles Abdomen: Soft, positive bowel sounds, nontender, nondistended Extremities: No edema, sensation intact Psych: Appropriate mood and affect IVs and Medications Medications Reviewed: Medications were reviewed in detail Lab and Diagnostics Result Diagram: 12/07/16 0730 12/07/16 0730 X-Rays, CTs and MRIs PROCEDURE: X-RAY CHEST ONE VIEW, PORTABLE ([id number]) IMPRESSION: Bibasilar opacities likely atelectasis. Correlate clinically to exclude developing pneumonia. Dictated by: Clay Grewal RRA Interpreted: Key Santoyo MD on 12/03/2016 at 8:44 . 12-lead ECG EKG: Sinus rhythm, heart rate 78, left axis, normal intervals, IVCD, normal R- wave progression, no pathological Q waves or acute ischemic changes such as ST elevation or depression. . Assessment & Plan Jefferson Farrell is a 66-year-old male with a past medical history significant for paroxysmal atrial fibrillation, hypertension, hyperlipidemia and COPD who presents to [facility] emergency Department complaining of chest pain. Rapid cycling paroxysmal atrial fibrillation with RVR; present admission; controlled -He has demonstrated paroxysmal A. fib with up to 6 second conversion pauses. Increasingly in sinus rhythm as of 12/05. -Continue Flecainide 100 mg twice a day -Metoprolol 75mg today -Holding Eliquis 5 mg twice daily, in anticipation of pacemaker placement. Will restart tomorrow -Dr. Robins for pacemaker today -telemetry continued Possible CAP with chronic pleurisy, present on admission. Active. - He has a long-standing history of recurrent chest pain with x-ray abnormalities resulting antibiotic treatment. This seems to be a chronic and recurrent undiagnosed pulmonary problem. Consolidation seen on CT. Blood cultures, Strep urinary antigen and respiratory PCR negative. He does not seem to be actively infected but we have treated for CAP, which will be continued in light of his pacemaker placement for Wednesday. - Continue ceftriaxone and azithromycin - We will discontinue tomorrow - Procalcitonin is essentially normal Acute chest pain, present on admission. resolved - The patient presented with sharp chest pain and pressure that sounds more pleuritic; patient had a recent stress test that was normal in June - EKG is unremarkable for ST changes - CTA performed on 11/30/2016 did not demonstrate any central pulmonary emboli, but did show lower lobe consolidations - Troponin negative 3 - Nitroglycerin and morphine as needed for chest pain. - Exercise stress test unremarkable Prediabetes, present on admission. - Heart healthy and diabetic diet - Hemoglobin A1c 6.0% in 02/2016. - A1c 5.8 Hypertension- Continue amlodipine, lisinopril, and triamterene/ hydrochlorothiazide COPD-continue albuterol nebulizers every 4 hours Hyperlipidemia-Continue atorvastatin Allergies-Claritin and nasonex Status: Likely discharge home tomorrow. Patient understands the need to take time off from work after the procedure. Pain Evaluation: Adequate Pain Control VTE Prophylaxis: SCDs, Other (stopped for procedure) Resuscitation Status: CPR: Attempt Resuscitation Time spent 30 minutes Attending Statement I interviewed and examined the patient on rounds today. I agree with the assessment and plan as stated above. Corby Rice DO Dec 07, 2016 14:10 Bruno Gordon MD Dec 08, 2016 07:12
--- NOTE | 2016-12-07 15:13 | DRSVH ---
PROCEDURE: X-RAY CHEST ONE VIEW, PORTABLE ([id number]) INDICATIONS: For new leads placed TECHNIQUE: One view of the chest was acquired. COMPARISON: [facility], CR, XR CHEST 1VW (PORTABLE), 12/02/2016, 23:14. 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 Lungs and pleura: No pleural effusions or pneumothorax. Streaky opacities noted in the left lung bas e likely represent atelectasis or parenchymal scarring. Right basilar and right midlung pleural fat s table compared to prior examination. Mediastinum: Mediastinal contours appear normal. Heart size is normal. Bones and chest wall: No suspicious bony lesions. Overlying soft tissues appear unremarkable. IMPRESSION: No acute cardiopulmonary disease process. Status post placement of cardiac pacer. Dictated by: Sheila Jain MD, PhD on 12/07/2016 at 15:11 Approved by: Sheila Jain MD, PhD on 12/07/2016 at 15:12
[2016-12-07] MEDS: HYDROcodone-APAP 5-325 mg Tablet PO PRN ×2 (15:50→21:33)
--- NOTE | 2016-12-07 15:58 | NUR ---
Pt transferred to PCC, VSS, Lt upper chest dressing CDI, report and pt handoff given to Evan RN.
--- NOTE | 2016-12-07 18:27 | NUR ---
Pacer/Activity Cardiac: Pt denies CP, Pacer placed today, Tele: A paced 60. Resp: pt on RA during the day, SPO2 , uses home cpap at , GI/: pt denies n/v Neuro: AxOx3, BARTLETT. up to BSC. Pt reports he has pleuresy in his eye and can get dizzy if he turns his head too fast. Pt up to BR once off bed rest following procedure with steady gait, reports mild dizziness.
--- NOTE | 2016-12-07 21:21 | PROG NOTE ---
[address] [address] PROGRESS NOTE PATIENT: LOPEZ SALAZAR : 1950 MR#: [id number] ADMIT: 12/03/2016 JOB ID: [id number] DATE: 12/07/2016 IDENTIFICATION AND HISTORY: The patient is a pleasant 66-year-old gentleman with preserved LV function, paroxysmal atrial fibrillation and recurrent near syncopal episodes now documented to be due to long conversion pauses of over six seconds. He had been admitted over the weekend and ruled out with serial cardiac enzymes. He also underwent a nuclear perfusion study which confirmed lack of significant ischemia. He continues to have episodic conversion pauses associated with near syncope. IMPRESSION AND RECOMMENDATION: The patient is a pleasant 66-year-old man with a structurally normal heart, paroxysmal atrial fibrillation and clear evidence of sick sinus syndrome with prolonged conversion pauses leading to near syncope. I recommended dual-chamber pacemaker implantation to allow for further treatment of his atrial fibrillation. Discussed the risks and benefits of the implant in detail. Ultimately, he wishes to proceed. PLAN: Dual-chamber pacemaker implantation. Thank very much for allowing me to participate in the care of the patient. Please call with any questions.
--- NOTE | 2016-12-08 00:59 | OP ---
[address] [address] OPERATIVE REPORT PATIENT: LOPEZ SALAZAR : 1950 MR#: [id number] ADMIT: 12/03/2016 JOB ID: [id number] DATE OF SURGERY: 12/07/2016 PREOPERATIVE DIAGNOSIS(ES): Sick sinus syndrome. POSTOPERATIVE DIAGNOSIS(ES): Sick sinus syndrome. PROCEDURES PERFORMED: 1. Dual-chamber pacemaker implantation. 2. Left upper extremity venogram. 3. Fluoroscopy. SURGEON: Soren Robins MD, radiation control specialist attending. ATTENDING PSYCHIATRIST: Nestor Bray. IMPLANTED DEVICES: 1. [employer] pulse generator model SL3867, serial number [id number]. 2. Right atrial lead [employer], [id number], 52 cm, serial number [id number]. 3. RV lead [employer], [id number], 58 cm, serial number [id number]. ANESTHESIA: Bolus dosing of Versed and fentanyl were utilized for an appropriate level of sedation. INDICATION: The patient is a pleasant 66-year-old gentleman with structurally normal heart, paroxysmal atrial fibrillation, sick sinus syndrome. After discussion of risks and benefits of pacemaker implantation, he opted to proceed. PROCEDURE DESCRIPTION: Following informed consent, the patient was taken to the EP laboratory in a fasting nonsedated state, where he was prepped in usual sterile fashion. The left infraclavicular region was infiltrated with 50 cc of a 50/50 mixture of bupivacaine and lidocaine. Once adequate anesthesia had been achieved, a 3 cm transverse incision was performed 2 cm below the left clavicle. Dissection was carried down to the pectoralis fascia and a pocket was then fashioned using combination of electrocautery and blunt dissection. Once adequate hemostasis had been achieved and under venographic guidance, the left axillary vein cannulated over the first rib twice with a micropuncture needle to deploy two 0.035, 3 mm J guidewires. Over the first of these, an 8-Omani tear-away sheath was advanced. Once the guidewire was removed, an active fixation lead was advanced to the RV outflow tract and ultimately the RV apex. The lead was affixed in position using associated active fixation screw and was connected to the external analyzer and demonstrated appropriately sensed R waves, impedance and capture threshold. The lead was checked to 10 V and there was no evidence of diaphragmatic stimulation. Attention was now paid to placement of the right atrial lead. Over the other previously deployed J guidewire, another 8-Omani tear-away sheath was advanced. Once the guidewire was removed, an active fixation lead was inserted to atrial appendage. It was fixed in position using it associated active fixation screw and was connected to the external analyzer and demonstrated appropriately sensed P waves, impedance and capture threshold. Lead was checked to 10 V and there was no evidence of diaphragmatic stimulation. Once the position and redundancy of both leads had been confirmed in multiple fluoroscopic views, the leads were anchored to prepectoralis fascia using their associated anchoring sleeves and 2-0 Ethibond sutures. The pocket was then copiously irritated with antibiotic solution. Leads were connected to a generator. The generator was placed in the pocket and was affixed to the floor of the pocket using 1-0 Ti-Cron suture. The incision was then closed with running layers of absorbable suture. The wound was dressed with skin adhesive and a small dressing. At the end of procedure, the needle, sponge and instrument counts were all correct. COMPLICATIONS: None. ESTIMATED BLOOD LOSS: Negligible. DEVICE MEASURED DATA: 1. Right atrial lead 2.8 mV, 0.75 V at 0.4 m/sec, 530 ohms. 2. RV lead 5.7 mV, 0.5 V at 0.4 msec, 680 ohms. FINAL PROGRAM PARAMETERS: DDDR 60-130 beats per minute with . IMPRESSION: Successful dual-chamber pacemaker implantation. PLAN: 1. Stat portable chest x-ray. 2. PA and lateral chest x-ray in the morning. 3. Device interrogation in the morning. 4. IV vancomycin through tomorrow. 5. Doxycycline x7 days, starting tomorrow. 6. Wound check in one week. ATTENDING STATEMENT: ISoren MD, electrophysiology attending, was present for and supervised/performed all aspects of this procedure.
[2016-12-08] MEDS: Sodium Chloride LOK Flush 10 mL Syringe IVFLUSH SCH ×2 (01:22→09:02)
[2016-12-08] MEDS ORDERED: Vancomycin Inj 1,000 MG in IV Premix 1 EACH IV ONE (01:30)
[2016-12-08] MEDS ORDERED: 0.9% Sodium Chloride 250 ML ONE (01:45)
[2016-12-08] MEDS: HYDROcodone-APAP 5-325 mg Tablet PO PRN ×2 (03:32→09:02)
[2016-12-08 04:00] LABS: BASOPHILS % (AUTO) 0.4 % (0-3); EOSINOPHILS % (AUTO) 2.6 % (0-5); MONOCYTES % (AUTO) 12.4 % (4-12); Mean Corpuscular Hemoglobin 28.5 pg (27.0-35.0); Mean Corpuscular Volume 85.8 fL (81-100); NEUTROPHILS % (AUTO) 64.5 % (40-74); Platelet Count 78 bil/L (150-400)
[2016-12-08 04:08] VITALS: BP 100/64; PULSE 60; RESP 20; O2SAT 97
[2016-12-08] MEDS: cefTRIAXone Inj 2,000 MG in Dextrose 5% Minibag Plus 50 ML IV SCH (05:43)
--- NOTE | 2016-12-08 05:52 | NUR ---
Pain/tele C/o incisional pain to left chest at pacer site. Relieved with [place]. Using CPAP and sats in mid-90s while asleep. Tele has been AV paced with rate around 60. No dizziness. Arm in sling and discussed mobility precautions with patient. at bedside throughout the night.
[2016-12-08 07:42] VITALS: BP 118/73; PULSE 62; RESP 16; O2SAT 97
--- NOTE | 2016-12-08 08:18 | DRSVH ---
PROCEDURE: X-RAY CHEST, TWO VIEWS ([id number]) INDICATIONS: For new lead placement TECHNIQUE: 2 views of the chest were acquired. COMPARISON: [facility], , CHEST 2VW, 07/14/2012, 11:22. FINDINGS: Surgical changes and devices: New left-sided cardiac pacer. Lungs and pleura: No pleural effusions or pneumothorax. Left basilar atelectasis or infiltrates. Oth erwise the lungs are clear. Mediastinum: Mediastinal contours are normal. Heart size is normal. Bones and chest wall: No suspicious bony abnormalities. Soft tissues appear unremarkable. IMPRESSION: 1. New left cardiac pacer. 2. Left basilar atelectasis or less likely infiltrates. Dictated by: Wolfgang Giraldo M.D. on 12/08/2016 at 8:15 Approved by: Wolfgang Giraldo M.D. on 12/08/2016 at 8:17
[2016-12-08] MEDS: MeTOProlol XL 50 mg ER24 Tablet PO SCH (09:01)
[2016-12-08] MEDS: Fluticasone 0.05% 15 Spray/2 Gm 16 Gm Nasal Spray NASAL SCH (09:03)
[2016-12-08] MEDS: 0.9% Sodium Chloride 1,000 ML IV SCH (09:29)
[2016-12-08] MEDS ORDERED: diphenhydrAMINE 25 mg Capsule PO PRN (10:15)
[2016-12-08 11:02] VITALS: PULSE 60
--- NOTE | 2016-12-08 11:23 | PROG NOTE ---
[address] [address] PROGRESS NOTE PATIENT: LOPEZ SALAZAR : 1950 MR#: [id number] ADMIT: 12/03/2016 JOB ID: [id number] DATE: 12/08/2016 IDENTIFICATION AND INTERVAL HISTORY: The patient is a pleasant 66-year-old man with a structurally normal heart, preserved LV function, paroxysmal atrial fibrillation and sick sinus syndrome. He underwent dual-chamber pacemaker implantation yesterday and has remained hemodynamically stable overnight. He has tenderness at his surgical site but no chest pain or pressure. He was lightheaded when he first got up this morning but denies any syncope. His chest radiograph shows stable lead position and no pneumothorax. Device interrogation shows stable lead parameters and no significant dysrhythmias. IMPRESSION AND RECOMMENDATION: The patient is a pleasant 66-year-old man with preserved left ventricular function, paroxysmal atrial fibrillation and sick sinus syndrome who is recovering nicely post device implant. His studies were unremarkable. His site is slightly red, likely a reaction to the tape from his dressing. I did take the dressing off this morning. He should keep the area dry for a total of 48 hours from the implant. He can start getting it wet tomorrow in the shower but not immerse it in water. He will need a one week followup visit in the device clinic and a six-week Followup visit with José Antonio Rashid PA-C. He has one week's worth of oral antibiotic; doxycycline or Keflex would be reasonable. Standard post implant precautions should be instituted. Thank you very much for allowing me to participate in the care of this patient. Please call with any questions. Please keep him on his current regimen for atrial fibrillation including his flecainide 100 mg twice daily and metoprolol 75 mg twice daily. He can resume his anticoagulation with Eliquis tomorrow morning.
[2016-12-08] MEDS ORDERED: DOXY100T2 PO (12:48)
[2016-12-08] MEDS ORDERED: METO-272 PO (12:48)
--- NOTE | 2016-12-08 12:55 | PCM.DIMED ---
Discharge Instructions Date of Service Dec 08, 2016 Dates of Hospitalization Dec 03, 2016 at 02:50 Discharge Diagnosis Discharge Diagnosis Atrial fibrillation with rapid ventricular response, Symptomatic conversion pauses Status post pacemaker placement Community-acquired pneumonia Chest pain, not due to cardiac ischemia Medication Instructions Additional med instructions You should continue 1 week of doxycycline twice daily, of which you report already having 6 days supply at home. 2 pills have been dispensed and transmitted to your pharmacy. Your metoprolol dose has been increased from 50 to 75 mg twice daily. You indicate that you have a adequate home supply for this at this time. Your flecainide dose has not changed. Narcotic pain relievers as needed for the next few days then switch to acetaminophen. May continue your home prescription for this. Diet Discharge Diet: Heart Healthy Activity Discharge Activity: Limited until seen by PCP (No weight lifting, exertion or elevation of your left arm until seen in pacemaker clinic. Use the sling as a reminder to keep your arm at rest. You are on short-term medical leave from work for 4 weeks.) Call your provider Call your provider for: Other (significant increase of redness or swelling at pacemaker site; episodes of symptomatic A. fib.) Patient Instructions Patient Instructions Instructions from Dr. Robins: "He should keep the area dry for a total of 48 hours from the implant. He can start getting it wet tomorrow in the shower but not immerse it in water. He will need a one week followup visit in the device clinic and a six-week Followup visit with José Antonio Rashid PA-C. He has one week's worth of oral antibiotic; doxycycline or Keflex would be reasonable. Standard post implant precautions should be instituted. Thank you very much for allowing me to participate in the care of this patient. Please call with any questions. Please keep him on his current regimen for atrial fibrillation including his flecainide 100 mg twice daily and metoprolol 75 mg twice daily. He can resume his anticoagulation with Eliquis tomorrow morning." [facility] Follow-up with PCP in: 1 week Provider: Rashid Gaviria MD Follow-up in: Other (call for a post-hospital follow-up appointment in 1-2 weeks) Mid-level Provider (F9): José Antonio Rashid PA-C Follow-up with Mid-level in: 6 weeks Bruno Gordon MD Dec 08, 2016 12:55
--- NOTE | 2016-12-08 14:07 | NUR ---
Social Work: Multidisciplinary Rounds/Discharge D: Pt discussed in multidisciplinary rounds; pt will be discharge today and is medially stable. Pt had a pacer placed yesterday. Attending provider identifies no discharge needs for social work and pt possesses the capacity for self-care. SENIOR STRATEGY MANAGER met with the patient and at bedside. Sw role explained. Pt and spouse both confirm plan to discharge home with no social needs. Pt's will transport him. They identify no unmet needs. Pt has been ambulating I since his procedure and SENIOR STRATEGY MANAGER identifies no sw needs for discharge. Bedside RN will review d/c instructions and changes to medications. A: Pt who is I at baseline. P: Pt to discharge home via POV and no sw needs. IVETTE Brumfield
--- NOTE | 2016-12-08 14:39 | NUR ---
Discharge Pt discharged home today at 14:35. Pt off floor via wheelchair, in the company of the ACCOUNTING CLERK and his , with all of his belongings to a private vehicle. Pt was provided with ed materials on pace maker and heart healthy diet, follow up appointments, and pacer precaution instructions. Prescriptions were faxed by provider to pt's pharmacy. All questions answered, pt and verbalize understanding.
--- NOTE | 2016-12-08 18:20 | PCM.DC.MED ---
Discharge Summary Date of Service Dec 08, 2016 Dates of Hospitalization Date of Hospital Admission Dec 03, 2016 at 02:50 Date of Discharge: Dec 08, 2016 Providers: Admitting Physician: Baljinder Eller MD Primary Care Physician: Storm Swenson MD Attending Physician: Katy Marie MD Diagnosis at Time of Discharge Diagnosis at Time of Discharge Atrial fibrillation with rapid ventricular response, Symptomatic conversion pauses Status post pacemaker placement Community-acquired pneumonia Chest pain, not due to cardiac ischemia Consultations Cardiology, Dr. Rausch, Dr. Robins Procedures XRay, CTs & MRIs PROCEDURE: X-RAY CHEST ONE VIEW, PORTABLE ([id number]) IMPRESSION: Bibasilar opacities likely atelectasis. Correlate clinically to exclude developing pneumonia. Dictated by: Clay Grewal RRA Interpreted: Key Santoyo MD on 12/03/2016 at 8:44 . ECG 12 Lead EKG: Sinus rhythm, heart rate 78, left axis, normal intervals, IVCD, normal R- wave progression, no pathological Q waves or acute ischemic changes such as ST elevation or depression. . Brief History History of Present Illness (per admission note): Jefferson Welsh is a 66-year-old male with a past medical history significant for paroxysmal atrial fibrillation, hypertension, hyperlipidemia and COPD who presents to [facility] emergency Department complaining of chest pain. The patient took an antibiotic at 18:30 this evening in addition to hydrocodone for his pleuritic chest pain. He laid down, which exacerbated the pain, but was able to fall asleep. He awoke at 22:30 with significant chest pain and pressure. The chest pain radiated to his shoulders bilaterally and left neck. He describes the pain as sharp with pressure component in quality. He noted that his blood pressure to be 157/107 and his heart rate to be over 120 when having the chest pain. He reports the chest pain is relieved with hydrocodone. The patient denies abdominal pain, nausea, vomiting, fever, dysuria, diarrhea or constipation. He does endorse a sore throat earlier in the week that has resolved, as well as, a minor nonproductive cough. He was seen in the ED twice in the last two days for similar symptoms and diagnosed with pneumonia on Cefdinir and doxycycline. Hospital Course Rapid cycling paroxysmal atrial fibrillation with RVR; present admission; controlled -He has demonstrated paroxysmal rapid A. fib, with up to 6 second conversion pauses. He experienced diaphoresis and presyncopal symptoms during conversion pauses. He is able to detect palpitations associated with rapid A. fib. With increased beta barbie he was increasingly in sinus rhythm as of 12/05. Subsequently received pacemaker on 12/07/16 -Continued Flecainide 100 mg twice a day -Metoprolol increased from 50 mg to 75mg twice daily -Holding Eliquis 5 mg twice daily, in anticipation of pacemaker placement, restarted on 12/09/16 -Follow-up instructions for activity restriction, antibiotics, 1 week pacemaker check, and 6 week visit with José Antonio Rashid [facility] cardiology Possible CAP with chronic pleurisy, present on admission. Active. - He has a long-standing history of recurrent episodes of chest pain with x-ray abnormalities resulting antibiotic treatment. This seems to be a chronic and recurrent undiagnosed pulmonary problem. Consolidation seen on CT. Blood cultures, Strep urinary antigen and respiratory PCR negative. Procalcitonin was essentially normal. He does not seem to be actively infected but we have treated for CAP, which will be continued in light of his pacemaker placement for Wednesday. - Continue ceftriaxone and azithromycin as inpatient; completed 5 days Acute chest pain, present on admission. resolved - The patient presented with sharp chest pain and pressure that sounds more pleuritic; patient had a recent stress test that was normal in June - EKG is unremarkable for ST changes - CTA performed on 11/30/2016 did not demonstrate any central pulmonary emboli, but did show lower lobe consolidations - Troponin negative 3 - Exercise stress test unremarkable Prediabetes, present on admission. - Heart healthy and diabetic diet - Hemoglobin A1c 6.0% in 02/2016. - A1c 5.8 Hypertension- Continue amlodipine, lisinopril, and triamterene/ hydrochlorothiazide COPD-continue albuterol nebulizers every 4 hours Hyperlipidemia-Continue atorvastatin Allergies-Claritin and nasonex . Exam Vital Signs (Last) Date Time Temp Pulse Resp B/P Pulse Ox O2 Delivery O2 Flow Rate FiO2 12/08/16 11:02 60 12/08/16 07:45 CPAP/BIPAP 12/08/16 07:42 36.6 16 118/73 97 12/06/16 21:00 21 Exam General: Mildly obese man in no acute distress HEENT: sclerae anicteric, oral mucosa moist Neck: no JVD Chest: Very tender in area of pacemaker implantation but surgical site looks good, lungs are clear to auscultation Cardiac: S1S2, regular, no murmur Abdomen: BS normal, non-tender Extremities: No edema Neuro: A&O, cranial nerves symmetric, motor strength 5/5, coordination normal Test 12/03/16 00:21 12/03/16 08:28 12/03/16 15:04 12/04/16 06:10 Activated Partial Thromboplast Time 31.0sec (22.8-33.0) D-Dimer < 0.50mg/L FEU (<0.50) Hemoglobin A1c 5.8% (4.8-5.6) Pro-B-Type Natriuretic Peptide 375.6pg/mL (0-376) Thyroid Stimulating Hormone (TSH) 1.720uIU/mL (0.450-4.500) Urine Legionella pneumophilia Ag Negative (Negative) Total Creatine Kinase 37U/L (21-232) Creatine Kinase MB 1.5ng/mL (0.0-10.4) Creatine Kinase MB % % (0.0-5.0) Troponin T 0.010ug/L (0.0-0.011) Triglycerides Level 80mg/dL (0-149) Cholesterol Level 117mg/dL (100-199) LDL Cholesterol, Calculated 58.000mg/dL (0-99) VLDL Cholesterol 16.000mg/dL HDL Cholesterol 43mg/dL (>39) Cholesterol/HDL Ratio 2.72 (0.0-4.4) Test 12/05/16 04:05 12/07/16 07:30 12/08/16 03:25 Procalcitonin 0.12ng/mL (0.00-0.08) Prothrombin Time 11.0sec (8.1-12.5) Prothromb Time International Ratio 1.03ratio White Blood Count 9.6th/mm3 (3.8-10.1) Red Blood Count 5.48mil/mm3 (4.40-5.80) Hemoglobin 15.6g/dL (13.8-17.2) Hematocrit 47.0% (41.0-50.0) Mean Corpuscular Volume 85.8fL (81-100) Mean Corpuscular Hemoglobin 28.5pg (27.0-35.0) Mean Corpuscular Hemoglobin Concent 33.2% (32.0-37.0) Red Cell Distribution Width 13.2% (12.3-15.4) Platelet Count 78bil/L (150-400) Neutrophils (%) (Auto) 64.5% (40-74) Lymphocytes (%) (Auto) 19.8% (14-46) Monocytes (%) (Auto) 12.4% (4-12) Eosinophils (%) (Auto) 2.6% (0-5) Basophils (%) (Auto) 0.4% (0-3) Sodium Level 136mEq/L (134-144) Potassium Level 4.6mEq/L (3.5-5.2) Chloride Level 100mEq/L (97-108) Carbon Dioxide Level 24mmol/L (18-29) Blood Urea Nitrogen 30mg/dL (8-27) Creatinine 0.93mg/dL (0.76-1.27) Estimat Glomerular Filtration Rate 86mL/min (>59) Glucose Level 96mg/dL (60-99) Calcium Level 9.0mg/dL (8.5-10.1) Magnesium Level 2.0mg/dL (1.6-2.6) Total Bilirubin 0.4mg/dL (0.0-1.2) Aspartate Amino Transf (AST/SGOT) 41U/L (0-50) Alanine Aminotransferase (ALT/SGPT) 91U/L (0-44) Alkaline Phosphatase 46U/L (25-160) Total Protein 6.5g/dL (6.4-8.4) Albumin 3.5g/dL (3.4-5.0) Discharge Medications Discharge Medications Amlodipine (Amlodipine) 10 Mg Tablet 10 MG PO DAILY (Reported) Apixaban (Eliquis) 5 Mg Tablet 5 MG PO BID (Reported) Atorvastatin (Lipitor) 20 Mg Tablet 20 MG PO DAILY (Reported) Cefdinir (Cefdinir) 300 Mg Capsule 300 MG PO BID Prescribed by: RAOUL GARCIA Cholecalciferol (Vitamin D3) (Vitamin D3) 2,000 Unit Tablet 2,000 UNIT PO DAILY (Reported) Doxycycline Hyclate (Doxycycline Hyclate) 100 Mg Tablet 100 MG PO BID Prescribed by: KATY MARIE MD Flecainide Acetate (Flecainide Acetate) 100 Mg Tablet 100 MG PO BID (Reported) Gluc/Marek-MSM#1/Vit C/Jomar/Bor (Xblomta-Qnktb-ZPR Complex Cplt) 1 Each Tablet 1 EACH PO BID (Reported) Ketoconazole (Ketoconazole) 15 Gm Cream..g. 15 GM TP BID (Reported) apply to affected areas of feet twice a day Lisinopril (Lisinopril) 20 Mg Tablet 20 MG PO BID (Reported) Loratadine (Claritin) 10 Mg Capsule 10 MG PO DAILY (Reported) Metoprolol Succinate ER (Metoprolol Succinate ER) 50 Mg Tab.er.24h 75 MG PO BID Prescribed by: KATY MARIE MD Mometasone Furoate (Nasonex) 17 Gm [place].pump 2 SPRAY NS DAILY (Reported) Multivitamin (Once Daily) 1 Each Tablet 1 EACH PO DAILY (Reported) Pantothenic Acid (Pantothenic Acid) 500 Mg Tablet 500 MG PO DAILY (Reported) Triamterene/HCTZ 75-50 mg (Triamterene/HCTZ 75-50 mg) 1 Each Tablet 0.5 TABLET PO HS (Reported) As needed Albuterol HFA (Proair HFA) 8.5 Gm Hfa.aer.ad 2 PUFFS INHALATION Q4H PRN PRN For Shortness of Breath (Reported) Hydrocodone-Acetaminophen 5-325 mg (Hydrocodone-Acetaminophen 5-325 mg) 1 Each Tablet 1 TABLET PO Q4H PRN PRN For Pain Prescribed by: JUANITA GUY, DO Additional med instructions You should continue 1 week of doxycycline twice daily, of which you report already having 6 days supply at home. 2 pills have been dispensed and transmitted to your pharmacy. Your metoprolol dose has been increased from 50 to 75 mg twice daily. You indicate that you have a adequate home supply for this at this time. Your flecainide dose has not changed. Narcotic pain relievers as needed for the next few days then switch to acetaminophen. May continue your home prescription for this. Followup Plan Disposition: Home Discharge Diet: Heart Healthy Discharge Activity: Limited until seen by PCP (No weight lifting, exertion or elevation of your left arm until seen in pacemaker clinic. Use the sling as a reminder to keep your arm at rest. You are on short-term medical leave from work for 4 weeks.) Patient Instructions Instructions from Dr. Robins: "He should keep the area dry for a total of 48 hours from the implant. He can start getting it wet tomorrow in the shower but not immerse it in water. He will need a one week followup visit in the device clinic and a six-week Followup visit with José Antonio Rashid PA-C. He has one week's worth of oral antibiotic; doxycycline or Keflex would be reasonable. Standard post implant precautions should be instituted. Thank you very much for allowing me to participate in the care of this patient. Please call with any questions. Please keep him on his current regimen for atrial fibrillation including his flecainide 100 mg twice daily and metoprolol 75 mg twice daily. He can resume his anticoagulation with Eliquis tomorrow morning. [facility] Follow-up with PCP in: 1 week Provider: Rashid Gaviria MD Follow-up in: Other (call for a post-hospital follow-up appointment in 1-2 weeks) Mid-level Provider: José Antonio Rashid PA-C Follow-up with Mid-level in: 6 weeks Time spent 35 min copies to: Soren Robins MD; José Antonio Rashid PA-C; Nano Rausch MD; Rashid Gaviria MD, Jeffrey W MD Dec 08, 2016 12:55
== END 2016-12-08 14:35 | disposition home or self-care (01) | DRG 242 ==
LOC: SED 22:55 → PCC 12-03 02:50 → OBSVTOIN 12-03 02:50 → PCC 12-03 03:05
PROVIDERS: ADMIT Hospitalist; ATTEND Hospitalist
PROC: 0JH606Z Insertion of Pacemaker, Dual Chamber into Chest Subcutaneous Tissue and Fascia, Open Approach (ICD-10-PCS; principal; 2016-12-07)
PROC: 02H63JZ Insertion of Pacemaker Lead into Right Atrium, Percutaneous Approach (ICD-10-PCS; 2016-12-07)
PROC: 02HK3JZ Insertion of Pacemaker Lead into Right Ventricle, Percutaneous Approach (ICD-10-PCS; 2016-12-07)
DX: I49.5 Sick sinus syndrome (principal); J18.9 Pneumonia, unspecified organism; J90 Pleural effusion, not elsewhere classified; I48.0 Paroxysmal atrial fibrillation; Z79.01 Long term (current) use of anticoagulants; J44.9 Chronic obstructive pulmonary disease, unspecified; E66.9 Obesity, unspecified; Z68.32 Body mass index [BMI] 32.0-32.9, adult; Z71.3 Dietary counseling and surveillance; I10 Essential (primary) hypertension; Z87.891 Personal history of nicotine dependence; R73.03 Prediabetes; E78.5 Hyperlipidemia, unspecified